=== PATIENT | male | born 1980 | race Caucasian/White ===

== ENCOUNTER 2018-09-30 21:36 | Emergency (ER) | payer SELFPAY ==
[2018-09-30] MEDS ORDERED: traMADol 50 MG Tab PO ONE (21:37)
--- NOTE | 2018-09-30 22:02 | EDM.PDOC ---
ED HPI GENERAL MEDICAL PROBLEM - General Chief Complaint: ENT Problem Stated Complaint: TOOTHACHE Time Seen by Provider: 09/30/18 21:36 Source of Information: Reports: Patient History Limitations: Reports: No Limitations - History of Present Illness INITIAL COMMENTS - FREE TEXT/NARRATIVE: 38 y.o.w.m came to the ed due to dental pain with facial swelling for several days. Tylenol does not help and he was told not to take Motrin. No other acute medical issues. BP 154/110 RR 18 Pulse ox 96% on RA Temp 36.9 Pulse 71 Onset Date: 09/28/18 Onset Time: 07:00 Duration: Day(s):, Getting Worse, Intermittent Location: Reports: Face Quality: Reports: Ache, Burning, Dull, Throbbing Severity: Moderate Improves with: Reports: None Worsens with: Reports: Cold Therapy, Eating Context: Reports: Other (poor dentition) Associated Symptoms: Reports: Other (right face swelling) Right Tooth/Teeth Pain Score (Numeric/FACES): 10 - Related Data Allergies Allergy/AdvReac Type Severity Reaction Status Date / Time bees Allergy Hives Uncoded 09/30/18 21:51 Home Meds: Home Meds Amoxicillin/Potassium Clav [Augmentin 875-125 Tablet] 1 each PO BID #20 tablet 09/30/18 [Rx] Lisinopril 40 mg PO DAILY 09/30/18 [History] ED ROS ENT - Review of Systems Review Of Systems: See Below Constitutional: Reports: No Symptoms HEENT: Reports: Dental Pain Respiratory: Reports: No Symptoms Cardiovascular: Reports: No Symptoms Endocrine: Reports: No Symptoms GI/Abdominal: Reports: No Symptoms : Reports: No Symptoms Musculoskeletal: Reports: No Symptoms Skin: Reports: No Symptoms Neurological: Reports: No Symptoms Psychiatric: Reports: No Symptoms Hematologic/Lymphatic: Reports: No Symptoms Immunologic: Reports: No Symptoms ED EXAM, ENT - Physical Exam Exam: See Below Exam Limited By: No Limitations General Appearance: Alert, WD/WN, Mild Distress, Obese Eye Exam: Bilateral Eye: Normal Inspection Ears: Normal External Exam Nose: Normal Inspection, Normal Mucousa Mouth/Throat: Dental Abcess, Dental Pain, Dental Tenderness Head: Atraumatic, Facial Swelling (right cheek) Neck: Normal Inspection, Supple, Non-Tender, Full Range of Motion Respiratory/Chest: No Respiratory Distress, Lungs Clear, Normal Breath Sounds, No Accessory Muscle Use, Chest Non-Tender Cardiovascular: Normal Peripheral Pulses, Regular Rate, Rhythm, No Edema, No Gallop, No Murmur, No Rub GI/Abdominal: Normal Bowel Sounds, Soft, Non-Tender, No Organomegaly, No Abnormal Bruit, No Mass, Pelvis Stable (Male) Exam: Deferred Rectal (Males) Exam: Deferred Back: Normal Inspection, Full Range of Motion Extremities: Normal Inspection, Normal Range of Motion, Non-Tender Neurological: Alert, Oriented, CN II-XII Intact, Normal Cognition, Normal Gait Psychiatric: Normal Affect, Normal Mood Skin: Warm, Dry, Intact, Normal Color Lymphatic: No Adenopathy Course - Vital Signs Text/Narrative:: 38 y.o.w.m came to the ed due to dental pain with facial swelling for several days. Tylenol does not help and he was told not to take Motrin. No other acute medical issues. BP 154/110 RR 18 Pulse ox 96% on RA Temp 36.9 Pulse 71 PE: Morbid obes w m with dental pain and right facial swelling Impression: Toothache with possible abscess Tooth # 3/4 Tx: Augmentin. Ultram to take home Reexam: Improved Plan: D/C with instructions Last Recorded V/S: Last Vital Signs Temp 36.5 C 09/30/18 21:53 Pulse Resp 18 09/30/18 21:53 BP 138/96 H 09/30/18 22:15 Pulse Ox 96 09/30/18 21:53 - Orders/Labs/Meds Meds: Medications Discontinued Medications Generic Name Dose Route Start Last Admin Trade Name Chasity PRN Reason Stop Dose Admin Amoxicillin/Clavulanate Potassium Confirm 09/30/18 22:12 09/30/18 22:18 Augmentin 875 Mg/125 Mg Administered 09/30/18 22:13 1 tab Dose Administration 1 tab .ROUTE .STK-MED ONE Amoxicillin/Clavulanate Potassium 1 tab 09/30/18 22:15 09/30/18 22:48 Augmentin 875 Mg/125 Mg PO 09/30/18 22:16 Not Given ONETIME ONE Departure - Departure Time of Disposition: 21:58 Disposition: Home, Self-Care 01 Condition: Good Clinical Impression: Toothache, Gingivitis, Dental caries, Tooth abscess - Discharge Information Prescriptions: Amoxicillin/Potassium Clav [Augmentin 875-125 Tablet] 1 each PO BID #20 tablet Referrals: PCP,None [Primary Care Provider] - Forms: ED Department Discharge Additional Instructions: Please se a dentis a.s.a.p. Please apply ice to the affected area, please take Ultram for severe pain, Abx as recommended, please come back if your symptoms get worse acutely.
[2018-09-30] MEDS ORDERED: Amoxicillin/Clavulanate K 875-125 MG Tab ONE (22:12)
[2018-09-30] MEDS ORDERED: Amoxicillin/Clavulanate K 875-125 MG Tab PO ONE (22:15)
== END 2018-09-30 22:20 | disposition home or self-care (01) ==
LOC: FB.ED 21:36
DX: K04.7 Periapical abscess without sinus (principal); K05.10 Chronic gingivitis, plaque induced; Z91.030 Bee allergy status; Z79.899 Other long term (current) drug therapy
CPT/HCPCS: 99282; A9270

== ENCOUNTER 2018-10-17 19:49 | Emergency (ER) | payer MEDICAID ==
[2018-10-17] MEDS ORDERED: Clindamycin HCl 150 MG Cap PO ONE (20:51)
[2018-10-17] MEDS ORDERED: Lidocaine 2% Viscous Solution 15 ML Cup PO ONE (20:51)
[2018-10-17] MEDS ORDERED: Gabapentin 100 MG Cap PO ONE ×2 (20:52)
--- NOTE | 2018-10-17 20:58 | EDM.PDOC ---
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 Treatments CHIP TESTER: Reports: Acetaminophen R dental pain Pain Score (Numeric/FACES): 8 - Related Data Allergies Allergy/AdvReac Type Severity Reaction Status Date / Time droperidol Allergy Muscle Verified 10/17/18 20:00 Aches hydrocortisone Allergy Hives Verified 10/17/18 20:00 prochlorperazine Allergy Cannot Verified 10/17/18 20:00 [From Compazine] Remember bees Allergy Hives Uncoded 09/30/18 21:51 Home Meds: Home Meds Amoxicillin/Potassium Clav [Augmentin 875-125 Tablet] 1 each PO BID #20 tablet 09/30/18 [Rx] Lisinopril 40 mg PO DAILY 09/30/18 [History] Acetaminophen [Tylenol Extra Strength] 1,000 mg Q6H PRN 10/17/18 [History] Clindamycin HCl 300 mg PO TID #21 capsule 10/17/18 [Rx] Gabapentin [Neurontin] 100 mg PO Q6H PRN #12 capsule 10/17/18 [Rx] Past Medical History Cardiovascular History: Reports: Hypertension Gastrointestinal History: Reports: GERD Genitourinary History: Reports: Other (See Below) Other Genitourinary History: IG nephrology Musculoskeletal History: Reports: Fracture Other Musculoskeletal History: Hx hx L ankle, L elbow, several fingers bilat hands Psychiatric History: Reports: Anxiety, Depression, Psych Hospitalization(s), Suicide Attempt Endocrine/Metabolic History: Reports: Obesity/BMI 30+ Immunologic History: Reports: Other (See Below) Other Immunologic History: IG nephrology - Infectious Disease History Infectious Disease History: Reports: Chicken Pox - Past Surgical History HEENT Surgical History: Reports: Oral Surgery GI Surgical History: Reports: Appendectomy Male Surgical History: Reports: Other (See Below) Other Male Surgeries/Procedures: kidney biopsy Social & Family History - Family History Family Medical History: Noncontributory - Tobacco Use Smoking Status *Q: Current Every Day Smoker Years of Tobacco use: 8 Packs/Tins Daily: 0.1 - Caffeine Use Caffeine Use: Reports: Energy Drinks, Soda - Recreational Drug Use Recreational Drug Use: Yes Drug Use in Last 12 Months: No Recreational Drug Type: Reports: Marijuana/Hashish ED ROS GENERAL - Review of Systems Review Of Systems: See Below Constitutional: Reports: No Symptoms HEENT: Reports: Dental Pain Respiratory: Reports: No Symptoms Cardiovascular: Reports: No Symptoms Endocrine: Reports: No Symptoms GI/Abdominal: Reports: No Symptoms : Reports: No Symptoms Musculoskeletal: Reports: No Symptoms Skin: Reports: No Symptoms Neurological: Reports: No Symptoms Psychiatric: Reports: No Symptoms Hematologic/Lymphatic: Reports: No Symptoms Immunologic: Reports: No Symptoms ED EXAM, GENERAL - Physical Exam Exam: See Below Exam Limited By: No Limitations General Appearance: Alert, WD/WN Nose: Normal Inspection, Normal Mucosa, No Blood Throat/Mouth: Normal Lips, Normal Oropharynx, Normal Voice, No Airway Compromise , Other (tooth #2 with inc'd tender to percussion, no red or swollen gum, tooth #29 with red and swollen gum and 1-2+ tender palpation) Head: Atraumatic, Normocephalic. No: Facial Swelling Neck: Normal Inspection, Supple, Non-Tender, Full Range of Motion, Other (no cheek swell). No: Lymphadenopathy (R), Lymphadenopathy (L) Respiratory/Chest: No Respiratory Distress Cardiovascular: Regular Rate, Rhythm Course - Vital Signs Last Recorded V/S: Last Vital Signs Temp 36.5 C 10/17/18 19:55 Pulse 73 10/17/18 19:55 Resp 18 10/17/18 19:55 BP 143/86 H 10/17/18 19:55 Pulse Ox 98 10/17/18 19:55 - Orders/Labs/Meds Orders: Active Orders 24 hr Category Date Time Status Gabapentin [Neurontin] Med 10/17/18 20:52 Once 100 mg PO ONETIME ONE Meds: Medications Discontinued Medications Generic Name Dose Route Start Last Admin Trade Name Freq PRN Reason Stop Dose Admin Clindamycin HCl 300 mg 10/17/18 20:51 Cleocin PO 10/17/18 20:52 ONETIME ONE Gabapentin 100 mg 10/17/18 20:52 Neurontin PO 10/17/18 20:53 ONETIME ONE Lidocaine HCl 15 ml 10/17/18 20:51 Xylocaine 2% Viscous PO 10/17/18 20:52 ONETIME ONE Departure - Departure Time of Disposition: 20:53 Disposition: Home, Self-Care 01 Condition: Good Clinical Impression: Dental abscess, Gingivitis - Discharge Information *PRESCRIPTION DRUG MONITORING PROGRAM REVIEWED*: Yes *COPY OF PRESCRIPTION DRUG MONITORING REPORT IN PATIENT FELICE: Yes Prescriptions: Clindamycin HCl 300 mg PO TID #21 capsule Gabapentin [Neurontin] 100 mg PO Q6H PRN #12 capsule PRN Reason: Pain Instructions: Dental Abscess, Gingivitis Referrals: PCP,None [Primary Care Provider] - Additional Instructions: For pain, continue the acetaminophen 500 mg 2 tabs 4 times a day. For pain, put a thin layer of viscous lidocaine on a cotton ball and bite down every hour as needed. For pain, take gabapentin 100 mg 1 capsule every 6 hours as needed. For infection, take clindamycin 300 mg 1 capsule 3 times a day for 1 week. Stop taking the Augmentin. Use ice on the mandible for 10 minutes every 2 hours while awake. Drink cold liquids. Chew on the opposite side of the mouth. Call you dentist tomorrow. - My Orders Last 24 Hours: My Active Orders 10/17/18 20:52 Gabapentin [Neurontin] 100 mg PO ONETIME ONE - Assessment/Plan Last 24 Hours: My Active Orders 10/17/18 20:52 Gabapentin [Neurontin] 100 mg PO ONETIME ONE
== END 2018-10-17 21:13 | disposition home or self-care (01) ==
LOC: FB.ED 19:49
DX: K04.7 Periapical abscess without sinus (principal); K05.10 Chronic gingivitis, plaque induced; I10 Essential (primary) hypertension; F17.210 Nicotine dependence, cigarettes, uncomplicated; Z90.49 Acquired absence of other specified parts of digestive tract; Z88.8 Allergy status to other drugs, medicaments and biological substances; Z91.030 Bee allergy status
CPT/HCPCS: 99282; A9270 ×4

== ENCOUNTER 2019-05-09 22:01 | Emergency (ER) | payer SELFPAY ==
[2019-05-09] MEDS ORDERED: Acetaminophen/Codeine 300-30 MG Tab PO STA (22:17)
[2019-05-09] MEDS ORDERED: Acetaminophen/Codeine 300-30 MG Tab ONE (22:25)
--- NOTE | 2019-05-09 23:47 | EDM.PDOC ---
ED HPI GENERAL MEDICAL PROBLEM - General Stated Complaint: BACK PAIN Time Seen by Provider: 05/09/19 22:01 Source of Information: Reports: Patient History Limitations: Reports: Physical Impairment - History of Present Illness INITIAL COMMENTS - FREE TEXT/NARRATIVE: 39 y.o.w.m with chronic low back pain and a chronic kidney disease, came directly from work due to low back pain, which started while standing for while at work. Pain radiating down to his right knee. No Stool or urine incontinence. Pt is able to abulate with pain at his lower back. No SOB, no N/V no other acute med issues. BP 133/73 Temp 98.3 Pulse 74 Pulse ox 99% on RA RR 18 Onset Date: 05/09/19 Onset Time: 21:00 Duration: Hour(s): Location: Reports: Back - Related Data Allergies Allergy/AdvReac Type Severity Reaction Status Date / Time droperidol Allergy Muscle Verified 10/17/18 20:00 Aches hydrocortisone Allergy Hives Verified 10/17/18 20:00 prochlorperazine Allergy Cannot Verified 10/17/18 20:00 [From Compazine] Remember bees Allergy Hives Uncoded 09/30/18 21:51 Home Meds: Home Meds Amoxicillin/Potassium Clav [Augmentin 875-125 Tablet] 1 each PO BID #20 tablet 09/30/18 [Rx] Lisinopril 40 mg PO DAILY 09/30/18 [History] Acetaminophen [Tylenol Extra Strength] 1,000 mg Q6H PRN 10/17/18 [History] Clindamycin HCl 300 mg PO TID #21 capsule 10/17/18 [Rx] Gabapentin [Neurontin] 100 mg PO Q6H PRN #12 capsule 10/17/18 [Rx] Acetaminophen with Codeine [Tylenol with Codeine #3 Tablet] 1 each PO Q4HR PRN # 4 tablet 05/09/19 [Rx] Past Medical History Cardiovascular History: Reports: Hypertension Gastrointestinal History: Reports: GERD Genitourinary History: Reports: Other (See Below) Other Genitourinary History: IG nephrology Musculoskeletal History: Reports: Fracture Other Musculoskeletal History: Hx hx L ankle, L elbow, several fingers bilat hands Psychiatric History: Reports: Anxiety, Depression, Psych Hospitalization(s), Suicide Attempt Endocrine/Metabolic History: Reports: Obesity/BMI 30+ Immunologic History: Reports: Other (See Below) Other Immunologic History: IG nephrology - Infectious Disease History Infectious Disease History: Reports: Chicken Pox - Past Surgical History HEENT Surgical History: Reports: Oral Surgery GI Surgical History: Reports: Appendectomy Male Surgical History: Reports: Other (See Below) Other Male Surgeries/Procedures: kidney biopsy Social & Family History - Family History Family Medical History: Noncontributory - Caffeine Use Caffeine Use: Reports: Energy Drinks, Soda ED ROS GENERAL - Review of Systems Review Of Systems: See Below Constitutional: Reports: No Symptoms HEENT: Reports: No Symptoms Respiratory: Reports: No Symptoms Cardiovascular: Reports: No Symptoms Endocrine: Reports: No Symptoms GI/Abdominal: Reports: No Symptoms : Reports: No Symptoms Musculoskeletal: Reports: Back Pain Skin: Reports: No Symptoms Neurological: Reports: No Symptoms Psychiatric: Reports: No Symptoms Hematologic/Lymphatic: Reports: No Symptoms Immunologic: Reports: No Symptoms ED EXAM,LOWER BACK PAIN/INJURY - Physical Exam Exam: See Below Exam Limited By: Physical Impairment General Appearance: Alert, WD/WN, Obese Eye Exam: Bilateral Eye: Normal Inspection Ears: Normal External Exam, Normal Canal Nose: Normal Inspection, Normal Mucosa, No Blood Throat/Mouth: Normal Inspection, Normal Lips, Normal Teeth, Normal Gums, Normal Voice, No Airway Compromise Head: Atraumatic, Normocephalic Neck: Normal Inspection, Supple, Non-Tender, Full Range of Motion Respiratory/Chest: No Respiratory Distress, Lungs Clear, Normal Breath Sounds, No Accessory Muscle Use, Chest Non-Tender Cardiovascular: Normal Peripheral Pulses, Regular Rate, Rhythm, No Edema, No Gallop, No Murmur, No Rub GI/Abdominal: Normal Bowel Sounds, Soft, Non-Tender, No Organomegaly (Male) Exam: Deferred Rectal (Males) Exam: Deferred Back Exam: Normal Inspection, Decreased Range of Motion, Muscle Spasm, Paraspinal Tenderness Extremities: Normal Inspection, Normal Range of Motion, Non-Tender Neurological: Alert, Normal Mood/Affect, CN II-XII Intact, Oriented x 3 Psychiatric: Normal Affect, Normal Mood Skin Exam: Warm, Dry, Intact, Normal Color, No Rash Lymphatic: No Adenopathy Course - Vital Signs Text/Narrative:: 39 y.o.w.m with chronic low back pain and a chronic kidney disease, came directly from work due to low back pain, which started while standing for while at work. Pain radiating down to his right knee. No Stool or urine incontinence. Pt is able to abulate with pain at his lower back. No SOB, no N/V no other acute med issues. BP 133/73 Temp 98.3 Pulse 74 Pulse ox 99% on RA RR 18 PE: Obese 39 y.o.w.m with low back pain Imaging/Labs: Not indicted Impression: Chronic back pain with Disc disease H/O kidney disease Tx: Tylenol with codeine was given, which is the only med he is allowed to take for pain. Reexam: Pt was 100% free of pain Plan: D/C with instructions - Orders/Labs/Meds Orders: Active Orders 24 hr Category Date Time Status Cooling Warming Measures [RC] ASDIRECTED Care 05/09/19 22:18 Active Ice Bag [Ice Therapy] [OM.PC] Routine Oth 05/09/19 22:18 Ordered Meds: Medications Discontinued Medications Generic Name Dose Route Start Last Admin Trade Name Freq PRN Reason Stop Dose Admin Acetaminophen/Codeine Phosphate 2 tab 05/09/19 22:17 05/09/19 22:24 Tylenol With Codeine No.3 300mg/30mg PO 05/09/19 22:18 2 tab ONETIME STA Administration Acetaminophen/Codeine Phosphate Confirm 05/09/19 22:25 Tylenol With Codeine No.3 300mg/30mg Administered 05/09/19 22:26 Dose 1 tab .ROUTE .STK-MED ONE Departure - Departure Time of Disposition: 23:48 Disposition: Home, Self-Care 01 Condition: Good Clinical Impression: Back pain at L4-L5 level - Discharge Information Prescriptions: Acetaminophen with Codeine [Tylenol with Codeine #3 Tablet] 1 each PO Q4HR PRN # 4 tablet PRN Reason: severe pain Referrals: PCP,None [Primary Care Provider] - Forms: ED Department Discharge Additional Instructions: Please apply ice to tower back, take the pain mes as recommended, please f/u, come back if your symptoms get worse acutely - My Orders Last 24 Hours: My Active Orders 05/09/19 22:18 Cooling Warming Measures [RC] ASDIRECTED Ice Bag [Ice Therapy] [OM.PC] Routine - Assessment/Plan Last 24 Hours: My Active Orders 05/09/19 22:18 Cooling Warming Measures [RC] ASDIRECTED Ice Bag [Ice Therapy] [OM.PC] Routine
== END 2019-05-10 | disposition home or self-care (01) ==
LOC: FB.ED 22:01
DX: M54.5 Low back pain (principal); I10 Essential (primary) hypertension; E66.9 Obesity, unspecified; Z68.41 Body mass index [BMI] 40.0-44.9, adult; Z90.49 Acquired absence of other specified parts of digestive tract; Z88.8 Allergy status to other drugs, medicaments and biological substances; Z91.030 Bee allergy status; Z79.899 Other long term (current) drug therapy
CPT/HCPCS: 99283; A9270

== ENCOUNTER 2019-06-15 01:28 | Emergency (ER) | payer SELFPAY ==
[2019-06-15] MEDS ORDERED: Cephalexin 500 MG Cap PO ONE (01:29)
--- NOTE | 2019-06-15 01:49 | EDM.PDOC ---
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 - Related Data Allergies Allergy/AdvReac Type Severity Reaction Status Date / Time droperidol Allergy Muscle Verified 06/15/19 01:46 Aches hydrocortisone Allergy Hives Verified 06/15/19 01:46 prochlorperazine Allergy Cannot Verified 06/15/19 01:46 [From Compazine] Remember bees Allergy Anaphylaxis Uncoded 06/15/19 02:50 Home Meds: Home Meds Hydrochlorothiazide/Lisinopril [Lisinopril-HCTZ 20-12.5 MG] 1 tab PO DAILY 05/10 [History] Simvastatin 10 mg PO DAILY 06/15/19 [History] Past Medical History Cardiovascular History: Reports: Hypertension Gastrointestinal History: Reports: GERD Genitourinary History: Reports: Other (See Below) Other Genitourinary History: IG nephrology Musculoskeletal History: Reports: Fracture Other Musculoskeletal History: Hx hx L ankle, L elbow, several fingers bilat hands Psychiatric History: Reports: Anxiety, Depression, Psych Hospitalization(s), Suicide Attempt Endocrine/Metabolic History: Reports: Obesity/BMI 30+ Immunologic History: Reports: Other (See Below) Other Immunologic History: IG nephrology - Infectious Disease History Infectious Disease History: Reports: Chicken Pox - Past Surgical History HEENT Surgical History: Reports: Oral Surgery GI Surgical History: Reports: Appendectomy Male Surgical History: Reports: Other (See Below) Other Male Surgeries/Procedures: kidney biopsy Social & Family History - Family History Family Medical History: Noncontributory - Caffeine Use Caffeine Use: Reports: Energy Drinks, Soda ED ROS GENERAL - Review of Systems Review Of Systems: ROS reveals no pertinent complaints other than HPI. ED EXAM, SKIN/RASH Exam: See Below Text/Narrative:: Rt forearm was red,swollen anteriorly around the tattoo. No drainage. It is warm Exam Limited By: No Limitations General Appearance: Alert, WD/WN Psychiatric: Normal Affect Skin: Warm, Increased Warmth Lymphatic: No Adenopathy Course - Vital Signs Last Recorded V/S: Last Vital Signs Temp 97.9 F 06/15/19 01:40 Pulse 81 06/15/19 01:40 Resp 18 06/15/19 01:40 BP 134/94 H 06/15/19 01:40 Pulse Ox 100 06/15/19 01:40 Departure - Departure Time of Disposition: 02:00 Disposition: Home, Self-Care 01 Clinical Impression: Cellulitis - Discharge Information Instructions: Wound Infection, Cephalexin tablets or capsules Referrals: PCP,Unknown [Ordering Only Provider] - 06/17/19 Forms: ED Department Discharge Care Plan Goals: Take Keflex, one tablet 3 times a day until gone. Return to clinic as needed. - Problem List & Annotations (1) Cellulitis SNOMED Code(s): 449775292 Code(s): L03.90 - CELLULITIS, UNSPECIFIED Status: Acute Qualifiers: Site of cellulitis: extremity (2) Tattoo reaction SNOMED Code(s): 48231202 Code(s): L92.3 - FOREIGN BODY GRANULOMA OF THE SKIN AND SUBCUTANEOUS TISSUE Status: Acute - Problem List Review Problem List Initiated/Reviewed/Updated: Yes - Assessment/Plan Plan: APart from local wound care,I prescribed Cephalexin 500 mg poio tid for 7 days. , Follow up with PCP in 3-5 days ,and return to ED with worsening symptoms.
== END 2019-06-15 02:00 | disposition home or self-care (01) ==
LOC: FB.ED 01:28
DX: L03.113 Cellulitis of right upper limb (principal); I10 Essential (primary) hypertension; E66.9 Obesity, unspecified; Z88.8 Allergy status to other drugs, medicaments and biological substances; Z91.030 Bee allergy status; Z79.899 Other long term (current) drug therapy; Z68.41 Body mass index [BMI] 40.0-44.9, adult
CPT/HCPCS: 99282; 99283; A9270-GY

== ENCOUNTER 2019-10-08 19:33 | Emergency (ER) | payer SELFPAY ==
[2019-10-08] MEDS ORDERED: Albuterol 8 GM Inhaler INH ONE (19:34)
[2019-10-08] MEDS ORDERED: Sodium Chloride 0.9% 10 ML Syringe FLUSH PRN (20:03)
[2019-10-08] MEDS ORDERED: LORazepam 2 MG/ML SDV IVPUSH ONE (20:04)
[2019-10-08] MEDS ORDERED: Aspirin 81 MG Tab.Chew PO ONE (20:12)
--- NOTE | 2019-10-08 20:13 | EDM.PDOC ---
ED HPI GENERAL MEDICAL PROBLEM - General Chief Complaint: Chest Pain Stated Complaint: SOB Time Seen by Provider: 10/08/19 20:04 Source of Information: Reports: Patient History Limitations: Reports: No Limitations - History of Present Illness INITIAL COMMENTS - FREE TEXT/NARRATIVE: Presents with substernal non-radiating chest pain, described as an ache, associated with SOB, and tingling to his feet x 1 hour. Denies prior h/o CAD, DVT/PE, or chronic lung disease. He is a non-smoker. Patient has had a work up for these symptoms in the past, etiology unclear. He does admit to having anxiety and panic attacks. Also admits to having a lot of stress in his life at the moment. His girlfriend is currently , he is concerned that he is overweight, doesn't exercise, and has poor eating habits. He endorses cough x 2 days, but no fever. Father of an NH @62 yo. Onset: Today Duration: Hour(s): (1) Location: Reports: Chest Quality: Reports: Ache Severity: Moderate Improves with: Reports: None Worsens with: Reports: None Associated Symptoms: Reports: Shortness of Breath Midsternal chest Pain Score (Numeric/FACES): 2 - Related Data Allergies Allergy/AdvReac Type Severity Reaction Status Date / Time droperidol Allergy Muscle Verified 10/08/19 19:46 Aches hydrocortisone Allergy Hives Verified 10/08/19 19:46 prochlorperazine Allergy Cannot Verified 10/08/19 19:46 [From Compazine] Remember bees Allergy Anaphylaxis Uncoded 10/08/19 19:46 Home Meds: Home Meds Hydrochlorothiazide/Lisinopril [Lisinopril-HCTZ 20-12.5 MG] 1 tab PO DAILY 05/10 [History] Simvastatin 10 mg PO DAILY 06/15/19 [History] Past Medical History Cardiovascular History: Reports: High Cholesterol, Hypertension. Denies: CAD, [place] Gastrointestinal History: Reports: GERD Genitourinary History: Reports: Other (See Below) Other Genitourinary History: IG nephropathy Musculoskeletal History: Reports: Fracture Other Musculoskeletal History: Hx hx L ankle, L elbow, several fingers bilat hands Neurological History: Reports: Concussion, Migraines Psychiatric History: Reports: Anxiety, Depression, Psych Hospitalization(s), Suicide Attempt Endocrine/Metabolic History: Reports: Obesity/BMI 30+ Immunologic History: Reports: Other (See Below) Other Immunologic History: IG nephropathy - Infectious Disease History Infectious Disease History: Reports: Chicken Pox - Past Surgical History HEENT Surgical History: Reports: Oral Surgery Cardiovascular Surgical History: Reports: None GI Surgical History: Reports: Appendectomy Male Surgical History: Reports: Other (See Below) Other Male Surgeries/Procedures: kidney biopsy Musculoskeletal Surgical History: Reports: None Social & Family History - Family History Family Medical History: Noncontributory - Tobacco Use Smoking Status *Q: Former Smoker Years of Tobacco use: 5 Used Tobacco, but Quit: Yes Month/Year Tobacco Last Used: 2004 - Caffeine Use Caffeine Use: Reports: Energy Drinks, Soda - Recreational Drug Use Recreational Drug Use: Yes Drug Use in Last 12 Months: No Recreational Drug Type: Reports: Methamphetamine Recreational Drug Use Frequency: Not Used In Over 6 Months ED ROS GENERAL - Review of Systems Review Of Systems: Comprehensive ROS is negative, except as noted in HPI. ED EXAM, GENERAL - Physical Exam Exam: See Below Exam Limited By: No Limitations General Appearance: Alert, WD/WN, No Apparent Distress Ears: Normal External Exam Nose: Normal Inspection Throat/Mouth: No Airway Compromise Head: Atraumatic, Normocephalic Neck: Full Range of Motion Respiratory/Chest: No Respiratory Distress, Lungs Clear, Decreased Breath Sounds (mild). No: Crackles, Rales, Rhonchi, Wheezing, Stridor, Prolonged Expiration Cardiovascular: Regular Rate, Rhythm, No Murmur GI/Abdominal: No Distention Back Exam: Full Range of Motion Extremities: Normal Range of Motion, Non-Tender, No Pedal Edema Neurological: Alert, Oriented, Normal Cognition, No Motor/Sensory Deficits Psychiatric: Tearful Skin Exam: Warm, Dry, Intact EKG INTERPRETATION EKG Date: 10/08/19 Time: 19:40 Rhythm: NSR Rate (Beats/Min): 81 [place]: Normal P-Wave: Present QRS: Normal ST-T: Normal QT: Normal Course - Vital Signs Last Recorded V/S: Last Vital Signs Temp 36.6 C 10/08/19 19:33 Pulse 68 10/08/19 23:00 Resp 18 10/08/19 23:00 BP 105/70 10/08/19 23:00 Pulse Ox 96 10/08/19 23:00 - Orders/Labs/Meds Orders: Active Orders 24 hr Category Date Time Status EKG Documentation Completion [RC] ASDIRECTED Care 10/08/19 20:03 Active RT Aerosol Therapy [RC] ASDIRECTED Care 10/08/19 21:05 Active Chest 2V [CR] Stat Exams 10/08/19 19:55 Taken Sodium Chloride 0.9% [Saline Flush] Med 10/08/19 20:03 Active 10 ml FLUSH ASDIRECTED PRN Saline Lock Insert [OM.PC] Routine Oth 10/08/19 20:03 Ordered EKG 12 Lead [EK] Routine Ther 10/08/19 20:03 Ordered Medication Orders Sodium Chloride (Saline Flush) 10 ml FLUSH ASDIRECTED PRN PRN Reason: Keep Vein Open Last Admin: 10/08/19 20:12 Dose: 10 ml Labs: Laboratory Tests 10/08/19 10/08/19 10/08/19 Range/Units 19:45 19:45 19:45 WBC 8.3 (4.5-12.0) X10-3/uL RBC 5.35 (4.30-5.75) x10(6)uL Hgb 15.7 (13.5-17.8) g/dL Hct 46.9 (30.0-51.3) % MCV 87.7 (80-96) fL MCH 29.3 (27.7-33.6) pg MCHC 33.4 (32.2-35.4) g/dL RDW 13.2 (11.5-15.5) % Plt Count 263 (125-369) X10(3)uL MPV 7.8 (7.4-10.4) fL Neut % (Auto) 66.5 (46-82) % Lymph % (Auto) 27.6 (13-37) % [place] % (Auto) 3.9 L (4-12) % Eos % (Auto) 1 (1.0-5.0) % Baso % (Auto) 1 (0-2) % Neut # (Auto) 5.6 (1.6-8.3) # Lymph # (Auto) 2.3 (0.6-5.0) # [place] # (Auto) 0.3 (0.0-1.3) # Eos # (Auto) 0.1 (0.0-0.8) # Baso # (Auto) 0.0 (0.0-0.2) # PT 9.6 (9.0-11.1) sec INR 0.99 L (1.00-1.24) APTT 24.7 (24.4-33.2) SECONDS D-Dimer, Quantitative 0.31 (0.0-0.59) mg/LFEU Sodium 141 (135-145) mmol/L Potassium 4.0 (3.5-5.3) mmol/L Chloride 103 (100-110) mmol/L Carbon Dioxide 21 (21-32) mmol/L BUN 34 H (7-18) mg/dL Creatinine 1.9 H (0.70-1.30) mg/dL Est Cr Clr Drug Dosing 49.77 mL/min Estimated GFR (MDRD) 40 L (>60) BUN/Creatinine Ratio 17.9 (9-20) Glucose 104 (80-116) mg/dL Calcium 9.4 (8.6-10.2) mg/dL Total Bilirubin 0.3 (0.1-1.3) mg/dL AST 26 H D (5-25) IU/L ALT 44 H D (12-36) U/L Alkaline Phosphatase 104 (56-112) IU/L Troponin I (4.0-60.3) pg/mL Total Protein 7.7 (6.0-8.0) g/dL Albumin 3.6 (3.5-5.2) g/dL Globulin 4.1 g/dL Albumin/Globulin Ratio 0.9 10/08/19 10/08/19 Range/Units 19:45 22:45 WBC (4.5-12.0) X10-3/uL RBC (4.30-5.75) x10(6)uL Hgb (13.5-17.8) g/dL Hct (30.0-51.3) % MCV (80-96) fL MCH (27.7-33.6) pg MCHC (32.2-35.4) g/dL RDW (11.5-15.5) % Plt Count (125-369) X10(3)uL MPV (7.4-10.4) fL Neut % (Auto) (46-82) % Lymph % (Auto) (13-37) % [place] % (Auto) (4-12) % Eos % (Auto) (1.0-5.0) % Baso % (Auto) (0-2) % Neut # (Auto) (1.6-8.3) # Lymph # (Auto) (0.6-5.0) # [place] # (Auto) (0.0-1.3) # Eos # (Auto) (0.0-0.8) # Baso # (Auto) (0.0-0.2) # PT (9.0-11.1) sec INR (1.00-1.24) APTT (24.4-33.2) SECONDS D-Dimer, Quantitative (0.0-0.59) mg/LFEU Sodium (135-145) mmol/L Potassium (3.5-5.3) mmol/L Chloride (100-110) mmol/L Carbon Dioxide (21-32) mmol/L BUN (7-18) mg/dL Creatinine (0.70-1.30) mg/dL Est Cr Clr Drug Dosing mL/min Estimated GFR (MDRD) (>60) BUN/Creatinine Ratio (9-20) Glucose (80-116) mg/dL Calcium (8.6-10.2) mg/dL Total Bilirubin (0.1-1.3) mg/dL AST (5-25) IU/L ALT (12-36) U/L Alkaline Phosphatase (56-112) IU/L Troponin I 4.3 4.6 (4.0-60.3) pg/mL Total Protein (6.0-8.0) g/dL Albumin (3.5-5.2) g/dL Globulin g/dL Albumin/Globulin Ratio Meds: Medications Generic Name Dose Route Start Last Admin Trade Name Freq PRN Reason Stop Dose Admin Sodium Chloride 10 ml 10/08/19 20:03 10/08/19 20:12 Saline Flush FLUSH 10 ml ASDIRECTED PRN Administration Keep Vein Open Discontinued Medications Generic Name Dose Route Start Last Admin Trade Name Freq PRN Reason Stop Dose Admin Albuterol/Ipratropium 3 ml 10/08/19 21:05 10/08/19 21:09 Duoneb 3.0-0.5 Mg/3 Ml NEB 10/08/19 21:06 3 ml ONETIME ONE Administration Aspirin 324 mg 10/08/19 20:12 10/08/19 20:15 Aspirin PO 10/08/19 20:13 324 mg ONETIME ONE Administration Lorazepam 1 mg 10/08/19 20:04 10/08/19 20:29 Ativan IVPUSH 10/08/19 20:05 1 mg ONETIME ONE Administration - Radiology Interpretation Free Text/Narrative:: CXR: Negative chest. (CRL, Dr. Roberts) - Re-Assessments/Exams Free Text/Narrative Re-Assessment/Exam: 10/08/19 23:13 Although the patient felt less anxious, he experienced only minimal improvement of chest pain and shortness of breath after Ativan 1mg IV. Chest pain and shortness of breath resolved after Duoneb. Patient discharged with Albuterol MDI. Departure - Departure Time of Disposition: 23:14 Disposition: Home, Self-Care 01 Condition: Good Clinical Impression: Atypical chest pain URI (upper respiratory infection) Qualifiers: URI type: unspecified viral URI Qualified Code(s): J06.9 - Acute upper respiratory infection, unspecified Instructions: Nonspecific Chest Pain, [id number], Viral Respiratory Infection , [id number] Referrals: PCP,None [Primary Care Provider] - Forms: ED Department Discharge Additional Instructions: Establish with a primary physician in 2-3 days. Use the Albuterol inhaler as directed. Take OTC Mucinex as needed. Return to the ER if symptoms worsen. Sepsis Event Note - Evaluation Sepsis Screening Result: No Definite Risk - Focused Exam Vital Signs: Vital Signs Temp Pulse Resp BP Pulse Ox 10/08/19 23:00 68 18 105/70 96 10/08/19 22:30 69 19 110/66 97 10/08/19 21:30 73 18 112/82 95 10/08/19 21:00 73 14 117/67 97 10/08/19 20:30 74 17 111/71 96 10/08/19 20:15 72 14 113/60 97 10/08/19 20:00 75 16 114/75 98 10/08/19 19:45 78 18 117/69 99 10/08/19 19:33 36.6 C 80 20 128/72 95 Date Exam was Performed: 10/08/19 Time Exam was Performed: 23:10 - My Orders Last 24 Hours: My Active Orders 10/08/19 19:55 Chest 2V [CR] Stat 10/08/19 20:03 EKG Documentation Completion [RC] ASDIRECTED Sodium Chloride 0.9% [Saline Flush] 10 ml FLUSH ASDIRECTED PRN Saline Lock Insert [OM.PC] Routine EKG 12 Lead [EK] Routine 10/08/19 21:05 RT Aerosol Therapy [RC] ASDIRECTED - Assessment/Plan Last 24 Hours: My Active Orders 10/08/19 19:55 Chest 2V [CR] Stat 10/08/19 20:03 EKG Documentation Completion [RC] ASDIRECTED Sodium Chloride 0.9% [Saline Flush] 10 ml FLUSH ASDIRECTED PRN Saline Lock Insert [OM.PC] Routine EKG 12 Lead [EK] Routine 10/08/19 21:05 RT Aerosol Therapy [RC] ASDIRECTED
[2019-10-08] MEDS ORDERED: Albuterol/Ipratropium 3.0-0.5 MG/3 ML Neb Soln NEB ONE (21:05)
== END 2019-10-08 23:30 | disposition home or self-care (01) ==
LOC: FB.ED 19:33
DX: R07.89 Other chest pain (principal); J06.9 Acute upper respiratory infection, unspecified; I10 Essential (primary) hypertension; E78.00 Pure hypercholesterolemia, unspecified; Z88.8 Allergy status to other drugs, medicaments and biological substances; Z88.6 Allergy status to analgesic agent; Z91.030 Bee allergy status; Z79.899 Other long term (current) drug therapy; Z87.891 Personal history of nicotine dependence
CPT/HCPCS: 36415; 71046; 80053; 84484; 85025; 85379; 85610; 85730; 93005; 93010; 94640; 96374; 99284; 99285; A9270; J2060; J7620-GY

== ENCOUNTER 2019-10-16 17:43 | Emergency (ER) | payer OTHER ==
--- NOTE | 2019-10-16 18:32 | EDM.PDOC ---
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, continuing working until 11 PM went to urgent care 2d ago and imaging without fx per Dr Magdaleno however pain has continued to be severe, not able to weight bear, using crutches , cannot take NSAIDs as he has IgA nephropathy since age 15 (on steroids x 1y when 1st dx'ed when living in [facility]) lives with girlfriend and her children he had a bad sprain of his L foot when skateboarding in his 20s - Related Data Allergies Allergy/AdvReac Type Severity Reaction Status Date / Time droperidol Allergy Muscle Verified 10/08/19 19:46 Aches hydrocortisone Allergy Hives Verified 10/08/19 19:46 prochlorperazine Allergy Cannot Verified 10/08/19 19:46 [From Compazine] Remember bees Allergy Anaphylaxis Uncoded 10/08/19 19:46 Home Meds: Home Meds Hydrochlorothiazide/Lisinopril [Lisinopril-HCTZ 20-12.5 MG] 1 tab PO DAILY 05/10 [History] Simvastatin 10 mg PO DAILY 06/15/19 [History] Past Medical History Cardiovascular History: Reports: High Cholesterol, Hypertension. Denies: CAD, [place] Gastrointestinal History: Reports: GERD Genitourinary History: Reports: Other (See Below) Other Genitourinary History: IG nephropathy Musculoskeletal History: Reports: Fracture Other Musculoskeletal History: Hx hx L ankle, L elbow, several fingers bilat hands Neurological History: Reports: Concussion, Migraines Psychiatric History: Reports: Anxiety, Depression, Psych Hospitalization(s), Suicide Attempt Endocrine/Metabolic History: Reports: Obesity/BMI 30+ Immunologic History: Reports: Other (See Below) Other Immunologic History: IG nephropathy - Infectious Disease History Infectious Disease History: Reports: Chicken Pox - Past Surgical History HEENT Surgical History: Reports: Oral Surgery Cardiovascular Surgical History: Reports: None GI Surgical History: Reports: Appendectomy Male Surgical History: Reports: Other (See Below) Other Male Surgeries/Procedures: kidney biopsy Musculoskeletal Surgical History: Reports: None Social & Family History - Family History Family Medical History: Noncontributory - Caffeine Use Caffeine Use: Reports: Energy Drinks, Soda ED ROS GENERAL - Review of Systems Review Of Systems: See Below Constitutional: Reports: No Symptoms HEENT: Reports: No Symptoms Respiratory: Reports: No Symptoms Cardiovascular: Reports: No Symptoms Endocrine: Reports: No Symptoms GI/Abdominal: Reports: No Symptoms : Reports: No Symptoms Musculoskeletal: Reports: Foot Pain Skin: Reports: No Symptoms Neurological: Reports: No Symptoms Psychiatric: Reports: No Symptoms Hematologic/Lymphatic: Reports: No Symptoms Immunologic: Reports: No Symptoms ED EXAM, GENERAL - Physical Exam Exam: See Below Exam Limited By: No Limitations General Appearance: Alert, WD/WN, No Apparent Distress Respiratory/Chest: No Respiratory Distress Cardiovascular: Regular Rate, Rhythm Extremities: Other (left foot with 1+ edema over the metatatarsals with 1-2+ tender across the entire distal 1/2 of the MTs, toes NT, has mild ecchymosis dorsally across distal MTs as well as medially over 1st IP joint) Course - Re-Assessments/Exams Free Text/Narrative Re-Assessment/Exam: 10/16/19 18:34 PE exam c/w a Grade II distal foot sprain, additional imaging 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 and no clinical evidence of localized bone tenderness on exam today Departure - Departure Time of Disposition: 18:25 Disposition: Home, Self-Care 01 Condition: Good Clinical Impression: Sprain of left foot - Discharge Information *PRESCRIPTION DRUG MONITORING PROGRAM REVIEWED*: Not Applicable *COPY OF PRESCRIPTION DRUG MONITORING REPORT IN PATIENT FELICE: Not Applicable Instructions: Elastic Bandage and RICE, Foot Sprain Forms: ED Return to Work/School Form Additional Instructions: For pain and inflammation and swelling, take acetaminophen 500 mg 2 tabs 4 times a day for 7 days, longer if needed. Use ice for 10 minutes 4 times a day. Elevate your foot higher than your heart for 30-60 minutes a day. Use crutches. No weight bearing until cleared by orthopedic surgeon to do so. See Dr Dalal, orthopedic surgeon, in 2-3 days. No work until cleared by orthopedics to do so.
== END 2019-10-16 18:44 | disposition home or self-care (01) ==
LOC: FB.ED 17:43
DX: S93.602A Unspecified sprain of left foot, initial encounter (principal); E78.00 Pure hypercholesterolemia, unspecified; I10 Essential (primary) hypertension; E66.9 Obesity, unspecified; Z88.8 Allergy status to other drugs, medicaments and biological substances; Z91.030 Bee allergy status; Z79.899 Other long term (current) drug therapy; Z68.42 Body mass index [BMI] 45.0-49.9, adult; W00.0XXA Fall on same level due to ice and snow, initial encounter
CPT/HCPCS: 99283

== ENCOUNTER 2020-02-06 17:01 | Emergency (ER) | payer SELFPAY ==
[2020-02-06] MEDS ORDERED: Sodium Chloride 0.9% 1,000 ML IV ONE (17:50)
[2020-02-06] MEDS ORDERED: Sodium Chloride 0.9% 10 ML Syringe FLUSH PRN (17:50)
[2020-02-06] MEDS ORDERED: HYDROmorphone 2 MG/ML SDV IVPUSH ONE (17:51)
--- NOTE | 2020-02-06 17:56 | EDM.PDOC ---
ED HPI GENERAL MEDICAL PROBLEM - General Chief Complaint: Abdominal Pain Stated Complaint: LEFT GROIN PAIN Time Seen by Provider: 02/06/20 17:52 Source of Information: Reports: Patient History Limitations: Reports: No Limitations - History of Present Illness INITIAL COMMENTS - FREE TEXT/NARRATIVE: Presents with worsening left groin pain radiating to back x 1 week. Denies N/V, hematuria, dysuria, or penile discharge. Also complains of RUQ abdominal pain x several weeks, this area not as painful as left groin. Patient has a history of IgA Nephropathy. Denies prior h/o kidney stones. Duration: Week(s): (1) Location: Reports: Abdomen Quality: Reports: Ache Severity: Moderate Left Groin Pain Score (Numeric/FACES): 8 - Related Data Allergies Allergy/AdvReac Type Severity Reaction Status Date / Time droperidol Allergy Muscle Verified 10/08/19 19:46 Aches hydrocortisone Allergy Hives Verified 10/08/19 19:46 prochlorperazine Allergy Cannot Verified 10/08/19 19:46 [From Compazine] Remember bees Allergy Anaphylaxis Uncoded 10/08/19 19:46 Home Meds: Home Meds Hydrochlorothiazide/Lisinopril [Lisinopril/HCTZ 20-12.5 MG] 1 tab PO DAILY 05/10/19 [History] Simvastatin 10 mg PO DAILY 06/15/19 [History] Acetaminophen/HYDROcodone [[place] 325-5 MG] 1 - 2 tab PO Q6H PRN #20 tab 02/06/20 [Rx] Past Medical History Cardiovascular History: Reports: High Cholesterol, Hypertension. Denies: CAD, NM Gastrointestinal History: Reports: GERD Genitourinary History: Reports: Other (See Below) Other Genitourinary History: IgA nephropathy Musculoskeletal History: Reports: Fracture Other Musculoskeletal History: Hx hx L ankle, L elbow, several fingers bilat hands Neurological History: Reports: Concussion, Migraines Psychiatric History: Reports: Anxiety, Depression, Psych Hospitalization(s), Suicide Attempt Endocrine/Metabolic History: Reports: Obesity/BMI 30+ - Infectious Disease History Infectious Disease History: Reports: Chicken Pox - Past Surgical History HEENT Surgical History: Reports: Oral Surgery Cardiovascular Surgical History: Reports: None GI Surgical History: Reports: Appendectomy Male Surgical History: Reports: Other (See Below) Other Male Surgeries/Procedures: kidney biopsy Musculoskeletal Surgical History: Reports: None Social & Family History - Family History Family Medical History: Noncontributory - Tobacco Use Smoking Status *Q: Former Smoker - Caffeine Use Caffeine Use: Reports: Energy Drinks, Soda - Alcohol Use Alcohol Use History: Yes Alcohol Use Frequency: Socially ED ROS GENERAL - Review of Systems Review Of Systems: Comprehensive ROS is negative, except as noted in HPI. ED EXAM, GENERAL - Physical Exam Exam: See Below Exam Limited By: No Limitations General Appearance: Alert, WD/WN, No Apparent Distress Nose: Normal Inspection Throat/Mouth: No Airway Compromise Head: Atraumatic, Normocephalic Neck: Full Range of Motion Respiratory/Chest: No Respiratory Distress, Lungs Clear, Normal Breath Sounds Cardiovascular: Regular Rate, Rhythm, No Murmur GI/Abdominal: Normal Bowel Sounds, Soft, No Mass, Tender (LLQ and RUQ) (Male) Exam: No Hernia Back Exam: CVA Tenderness (L) Extremities: Normal Range of Motion Neurological: Alert, Oriented, Normal Cognition, No Motor/Sensory Deficits Psychiatric: Normal Affect, Normal Mood Skin Exam: Warm, Dry, Intact Course - Vital Signs Last Recorded V/S: Last Vital Signs Temp 36.8 C 02/06/20 17:13 Pulse 79 02/06/20 17:13 Resp 18 02/06/20 17:13 BP 124/75 02/06/20 17:13 Pulse Ox 99 02/06/20 17:13 - Orders/Labs/Meds Orders: Active Orders 24 hr Category Date Time Status Abdomen Pelvis wo Cont [CT] Stat Exams 02/06/20 18:13 Taken Sodium Chloride 0.9% [Saline Flush] Med 02/06/20 17:50 Active 10 ml FLUSH ASDIRECTED PRN Saline Lock Insert [OM.PC] Routine Oth 02/06/20 17:50 Ordered Medication Orders Sodium Chloride (Saline Flush) 10 ml FLUSH ASDIRECTED PRN PRN Reason: Keep Vein Open Labs: Laboratory Tests 02/06/20 02/06/20 02/06/20 Range/Units 17:45 18:01 18:01 WBC 9.3 (4.5-12.0) X10-3/uL RBC 5.46 (4.30-5.75) x10(6)uL Hgb 15.8 (13.5-17.8) g/dL Hct 48.3 (30.0-51.3) % MCV 88.3 (80-96) fL MCH 28.9 (27.7-33.6) pg MCHC 32.7 (32.2-35.4) g/dL RDW 13.3 (11.5-15.5) % Plt Count 341 (125-369) X10(3)uL MPV 7.2 L (7.4-10.4) fL Neut % (Auto) 67.7 (46-82) % Lymph % (Auto) 25.7 (13-37) % [place] % (Auto) 4.3 (4-12) % Eos % (Auto) 2 (1.0-5.0) % Baso % (Auto) 1 (0-2) % Neut # (Auto) 6.2 (1.6-8.3) # Lymph # (Auto) 2.4 (0.6-5.0) # [place] # (Auto) 0.4 (0.0-1.3) # Eos # (Auto) 0.2 (0.0-0.8) # Baso # (Auto) 0.1 (0.0-0.2) # Sodium 137 (135-145) mmol/L Potassium 5.3 D (3.5-5.3) mmol/L Chloride 102 (100-110) mmol/L Carbon Dioxide 26 (21-32) mmol/L BUN 45 H D (7-18) mg/dL Creatinine 2.2 H* (0.70-1.30) mg/dL Est Cr Clr Drug Dosing 42.56 mL/min Estimated GFR (MDRD) 34 L (>60) BUN/Creatinine Ratio 20.5 H (9-20) Glucose 91 (80-116) mg/dL Calcium 9.2 (8.6-10.2) mg/dL Total Bilirubin 0.4 (0.1-1.3) mg/dL AST 28 H (5-25) IU/L ALT 51 H D (12-36) U/L Alkaline Phosphatase 124 H (56-112) IU/L Total Protein 8.1 H (6.0-8.0) g/dL Albumin 3.8 (3.5-5.2) g/dL Globulin 4.3 g/dL Albumin/Globulin Ratio 0.9 Lipase (73-393) U/L Urine Color Yellow (YELLOW) Urine Appearance Clear (CLEAR) Urine pH 5.0 (5.0-6.5) Ur Specific [place] 1.015 (1.010-1.025) Urine Protein Negative (NEGATIVE) mg/dL Urine Glucose (UA) Normal (NORMAL) mg/dL Urine Ketones Negative (NEGATIVE) mg/dL Urine Occult Blood Negative (NEGATIVE) Urine Nitrite Negative (NEGATIVE) Urine Bilirubin Negative (NEGATIVE) Urine Urobilinogen Normal (NEGATIVE) mg/dL Ur Leukocyte Esterase Negative (NEGATIVE) Urine RBC 0-5 (0-5) Urine WBC 0-5 (0-5) Ur Squamous Epith Cells Rare (NS,R,O) Urine Bacteria Few H (NS) Urine Mucus Few H (NS) 02/06/20 Range/Units 18:01 WBC (4.5-12.0) X10-3/uL RBC (4.30-5.75) x10(6)uL Hgb (13.5-17.8) g/dL Hct (30.0-51.3) % MCV (80-96) fL MCH (27.7-33.6) pg MCHC (32.2-35.4) g/dL RDW (11.5-15.5) % Plt Count (125-369) X10(3)uL MPV (7.4-10.4) fL Neut % (Auto) (46-82) % Lymph % (Auto) (13-37) % [place] % (Auto) (4-12) % Eos % (Auto) (1.0-5.0) % Baso % (Auto) (0-2) % Neut # (Auto) (1.6-8.3) # Lymph # (Auto) (0.6-5.0) # [place] # (Auto) (0.0-1.3) # Eos # (Auto) (0.0-0.8) # Baso # (Auto) (0.0-0.2) # Sodium (135-145) mmol/L Potassium (3.5-5.3) mmol/L Chloride (100-110) mmol/L Carbon Dioxide (21-32) mmol/L BUN (7-18) mg/dL Creatinine (0.70-1.30) mg/dL Est Cr Clr Drug Dosing mL/min Estimated GFR (MDRD) (>60) BUN/Creatinine Ratio (9-20) Glucose (80-116) mg/dL Calcium (8.6-10.2) mg/dL Total Bilirubin (0.1-1.3) mg/dL AST (5-25) IU/L ALT (12-36) U/L Alkaline Phosphatase (56-112) IU/L Total Protein (6.0-8.0) g/dL Albumin (3.5-5.2) g/dL Globulin g/dL Albumin/Globulin Ratio Lipase 150 (73-393) U/L Urine Color (YELLOW) Urine Appearance (CLEAR) Urine pH (5.0-6.5) Ur Specific [place] (1.010-1.025) Urine Protein (NEGATIVE) mg/dL Urine Glucose (UA) (NORMAL) mg/dL Urine Ketones (NEGATIVE) mg/dL Urine Occult Blood (NEGATIVE) Urine Nitrite (NEGATIVE) Urine Bilirubin (NEGATIVE) Urine Urobilinogen (NEGATIVE) mg/dL Ur Leukocyte Esterase (NEGATIVE) Urine RBC (0-5) Urine WBC (0-5) Ur Squamous Epith Cells (NS,R,O) Urine Bacteria (NS) Urine Mucus (NS) Meds: Medications Generic Name Dose Route Start Last Admin Trade Name Freq PRN Reason Stop Dose Admin Sodium Chloride 10 ml 02/06/20 17:50 Saline Flush FLUSH ASDIRECTED PRN Keep Vein Open Discontinued Medications Generic Name Dose Route Start Last Admin Trade Name Freq PRN Reason Stop Dose Admin Hydromorphone HCl 0.5 mg 02/06/20 17:51 02/06/20 18:32 Dilaudid IVPUSH 02/06/20 17:52 0.5 mg ONETIME ONE Administration Sodium Chloride 1,000 mls @ 999 mls/hr 02/06/20 17:50 02/06/20 18:34 Normal Saline IV 02/06/20 18:50 999 mls/hr .BOLUS ONE Administration - Radiology Interpretation Free Text/Narrative:: CT Abd/Pelvis w/o contrast: left inguinal hernia containing only fat, otherwise no acute findings. (per Dr. Magdaleno) - Re-Assessments/Exams Free Text/Narrative Re-Assessment/Exam: 02/06/20 19:01 Pain improved after Dilaudid 0.5mg IV. Departure - Departure Time of Disposition: 19:08 Disposition: Home, Self-Care 01 Condition: Good Clinical Impression: Inguinal hernia of left side without obstruction or gangrene - Discharge Information *PRESCRIPTION DRUG MONITORING PROGRAM REVIEWED*: Yes *COPY OF PRESCRIPTION DRUG MONITORING REPORT IN PATIENT FELICE: No Prescriptions: Acetaminophen/HYDROcodone [[place] 325-5 MG] 1 - 2 tab PO Q6H PRN #20 tab PRN Reason: Pain Instructions: Inguinal Hernia, Adult, [id number] Referrals: Brandon Minor MD [Physician] - 3 Days Forms: ED Department Discharge, ED Return to Work/School Form Additional Instructions: Fill the [place] prescription and take as directed. Avoid heavy lifting or bearing down. Follow up with a General Surgeon in 3 days. Return to the ER if symptoms worsen. Sepsis Event Note (ED) - Evaluation Sepsis Screening Result: No Definite Risk - Focused Exam Vital Signs: Vital Signs Temp Pulse Resp BP Pulse Ox 02/06/20 17:13 36.8 C 79 18 124/75 99 - My Orders Last 24 Hours: My Active Orders 02/06/20 17:50 Sodium Chloride 0.9% [Saline Flush] 10 ml FLUSH ASDIRECTED PRN Saline Lock Insert [OM.PC] Routine 02/06/20 18:13 Abdomen Pelvis wo Cont [CT] Stat - Assessment/Plan Last 24 Hours: My Active Orders 02/06/20 17:50 Sodium Chloride 0.9% [Saline Flush] 10 ml FLUSH ASDIRECTED PRN Saline Lock Insert [OM.PC] Routine 02/06/20 18:13 Abdomen Pelvis wo Cont [CT] Stat
--- NOTE | 2020-02-06 19:19 | CT ---
INDICATION: Left low flank pain - groin pain. CT ABDOMEN AND PELVIS WITHOUT CONTRAST: Spiral 2.5 mm axial sections were obtained through the abdomen and pelvis without contrast - renal calculus protocol - with sagittal and coronal reconstructions 02/06/20 - no comparisons. Total exam DLP was 2186.49 mGy-cm. The lower lung bauer and pleural spaces included on the study were negative for an active process. The heart did not appear enlarged. No pericardial effusion was seen. No gallstones were demonstrated. The liver, spleen, adrenal glands, and for the most part kidneys appeared normal except to note some very minimal scarring of the renal cortices. The pancreas appeared fairly normal except for some calcifications in the tail area which may represent bouts of previous pancreatitis but should be correlated clinically. No retroperitoneal masses were seen. Retroperitoneal lymphadenopathy is minimal. Aortic and iliac artery calcifications are present but minimal. Inguinal hernias noted on the left included only fat. The appendix is absent compatible with history of its removal. No evidence of free air or bowel obstruction was seen. IMPRESSION: 1. Left-sided inguinal hernia of moderate size including only fat. 2. Mild renal cortical scarring especially on the left. No renal calcinosis or obstructive uropathy. Report was called to Dr. Bland at 1904 hours. [facility]
== END 2020-02-06 19:18 | disposition home or self-care (01) ==
LOC: FB.ED 17:01
DX: K40.90 Unilateral inguinal hernia, without obstruction or gangrene, not specified as recurrent (principal); E78.00 Pure hypercholesterolemia, unspecified; I10 Essential (primary) hypertension; E66.9 Obesity, unspecified; Z68.42 Body mass index [BMI] 45.0-49.9, adult; Z87.891 Personal history of nicotine dependence; Z88.8 Allergy status to other drugs, medicaments and biological substances; Z91.030 Bee allergy status; Z79.899 Other long term (current) drug therapy
CPT/HCPCS: 36415; 74176; 80053; 81001; 83690; 85025; 96374; 99284; J1170; J7030; 99283

== ENCOUNTER 2020-02-23 07:37 | Day surgery (SDC) | payer SELFPAY ==
[2020-02-23] MEDS ORDERED: fentaNYL 100 MCG/2 ML SDV IV ONE (07:38)
[2020-02-23] MEDS ORDERED: Dexamethasone 4 MG/ML 5 ML MDV IVPUSH ONE (07:38)
[2020-02-23] MEDS ORDERED: Ketorolac 30 MG/ML SDV IVPUSH ONE (07:38)
[2020-02-23] MEDS ORDERED: Ondansetron 4 MG/2 ML SDV IVPUSH ONE (07:38)
[2020-02-23] MEDS ORDERED: Lidocaine 2% 5 ML SDV INJECT ONE (07:38)
[2020-02-23] MEDS ORDERED: HYDROmorphone 2 MG/ML SDV IV ONE (07:38)
[2020-02-23] MEDS ORDERED: Propofol 200 MG/20 ML SDV IV ONE (07:38)
[2020-02-23] MEDS ORDERED: Lactated Ringers 1,000 ML IV ONE (07:38)
[2020-02-23] MEDS ORDERED: Midazolam 1 MG/ML 2 ML SDV IV ONE (07:38)
[2020-02-23] MEDS ORDERED: Lactated Ringers 1,000 ML IV SCH (09:30)
[2020-02-23] MEDS ORDERED: Sodium Chloride 0.9% 10 ML Syringe FLUSH PRN (09:30)
[2020-02-23] MEDS ORDERED: Bupivacaine 0.5% 30 ML SDV INJECT ONE (09:49)
[2020-02-23] MEDS ORDERED: Lidocaine 1% with EPINEPHrine 1:100,000 20 ML MDV INJECT ONE (09:50)
[2020-02-23] MEDS ORDERED: Acetaminophen/HYDROcodone 325-5 MG Tab PO PRN (10:52)
[2020-02-23] MEDS ORDERED: Morphine 2 MG/ML SYRINGE IVPUSH PRN (10:52)
--- NOTE | 2020-02-23 13:36 | OR ---
DATE OF OPERATION: 02/23/2020 SURGEON: Brandon Minor MD PROCEDURE PERFORMED: Left inguinal hernia repair with mesh. PREOPERATIVE DIAGNOSIS: Left inguinal hernia. POSTOPERATIVE DIAGNOSIS: Direct left inguinal hernia without obstruction or gangrene. INDICATIONS FOR PROCEDURE: This is a 40-year-old white male who is referred with a symptomatic left inguinal hernia. He was offered and accepted repair. INTRAOPERATIVE FINDINGS: As follows: A direct inguinal hernia was identified. This was repaired with a Bard mesh, preshaped mesh, reference #[id number], lot #[id number] with an expiration date of 01/12/2024. OptiFix fasteners were used to attach the mesh, and a grand total of 12 mL of 1:1 mixture of 1% lidocaine with epinephrine and 0.5% bupivacaine was used. DESCRIPTION OF OPERATION: After an excellent LMA anesthetic was used, the patient was prepped and draped in usual sterile manner. We did lay some [place]an over this as draping, due to his obesity. The area of the planned incision was then infiltrated with local mixture. A 12 cm incision was then made in the left inguinal area. The underlying subcu fat was divided using electrocautery. Inferior epigastric vessels were clamped, divided, and tied with 2-0 Vicryl ties. Yesika's fascia was divided, exposing the aponeurosis of the external oblique. What was notable was the ilioinguinal nerve did exit superior to the external ring. This was carefully preserved as we infiltrated the aponeurosis with more local and made a stab incision over the approximate level of the internal ring and carried out our incision out through the external ring. The cord was mobilized and skeletonized. The cord lipoma was reduced. The base of the cord was clamped, divided, and tied with a 2-0 Vicryl tie. The patient was noted to have a large direct hernia. The transversalis fascia was approximated with interrupted 0 Ethibond along the inguinal ligament to give us a flat surface for our mesh. The mesh was then placed on the floor of the canal with the spermatic cord going through the keyhole. This was tacked inferiorly with a running 2-0 Prolene. The keyhole was also closed with a running 2-0 Prolene as well. The OptiFix was then used to attach the mesh to the underlying floor of the inguinal canal on the transversalis fascia. The area was irrigated. The aponeurosis was very thin and patulous, but we were able to approximate it with a running 3-0 Vicryl. Yesika's fascia was closed with a 3-0 Vicryl as well and julia were used to close the skin. Needle, sponge, and instrument counts were reported as correct. The patient was taken to Recovery in good condition having tolerated the procedure well. Needle, sponge, and instrument counts were noted as correct as well. /[id number] /MODL
--- NOTE | 2020-02-27 09:48 | PCM.OPNOTE ---
- General Post-Op/Procedure Note Date of Surgery/Procedure: 02/23/20 Operative Procedure(s): LIH repair Findings: direct inguinal hernia Pre Op Diagnosis: lih Post-Op Diagnosis: Same Anesthesia Technique: General LMA, Local (1 % lido with epi/0.5% buvipicaine) Primary Surgeon: Brandon Minor Anesthesia Provider: Michael Delacruz Pathology: none Condition: Good Free Text/Narrative:: see dictation
== END 2020-02-23 12:28 | disposition home or self-care (01) ==
LOC: FB.SDS 07:37
PROVIDERS: ATTEND Surgery
DX: K40.90 Unilateral inguinal hernia, without obstruction or gangrene, not specified as recurrent (principal); D17.6 Benign lipomatous neoplasm of spermatic cord; I12.9 Hypertensive chronic kidney disease with stage 1 through stage 4 chronic kidney disease, or unspecified chronic kidney disease; N18.3 Chronic kidney disease, stage 3 (moderate); Z11.59 Encounter for screening for other viral diseases; Z87.891 Personal history of nicotine dependence; Z79.899 Other long term (current) drug therapy; Z88.8 Allergy status to other drugs, medicaments and biological substances; Z91.030 Bee allergy status
CPT/HCPCS: 00830; 49505; 87635; A9270; C1713; C1781; J0131; J0690; J1100; J1170; J1885; J2001; J2250; J2405; J2704; J3010; J3490; J7050; J7120; U0002

== ENCOUNTER 2020-02-25 19:02 | Emergency (ER) | payer SELFPAY ==
--- NOTE | 2020-02-25 19:32 | EDM.PDOC ---
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, has hc/apap 5/325 and took 2 tabs at noon that has helped some, has had burning pain since 8 AM at the incision and into the scrotum, feels like testes are on fire, very sensitive to touch last void 1h ago, PVR 48 ml here on bladder scanner POCUS done with no evidence of seroma h/o appy, no other previous abd surgery, no previous hernia surgery labs 19d ago with BUN/creat 45/2.2, AST/ALT/alk phos 28/51/124, TP 8.1, CBC neg labs 4m ago with uric acid 10.2 labs 1y ago with baseline BUN/creat 18/1.4 PMH ENT: toothache, gingivitis, dental caries ORTHO: back pain L4-5, sprain L foot : direct inguinal hernia on L SKIN: cellulitis, tattoo reaction MPMP with 16 tabs hc/apap 5/325 from 2d ago by Dr Looney, presviously 20 tabs hc/apap 5/325 on 02/[address] Bland (36 tabs of hc/apap 5/325 in past 18 days) left side groin Pain Score (Numeric/FACES): 10 - Related Data Allergies Allergy/AdvReac Type Severity Reaction Status Date / Time droperidol Allergy Muscle Verified 02/23/20 09:07 Aches hydrocortisone Allergy Hives Verified 02/23/20 09:07 ketorolac [From Toradol] Allergy Other Verified 02/23/20 11:31 NSAIDS (Non-Steroidal Allergy Other Verified 02/23/20 11:40 Anti-Inflamma prochlorperazine Allergy Cannot Verified 02/23/20 09:07 [From Compazine] Remember bees Allergy Anaphylaxis Uncoded 02/23/20 09:07 Home Meds: Home Meds Simvastatin 10 mg PO DAILY 06/15/19 [History] Multivitamin [Multivitamins] 1 each PO DAILY 02/22/20 [History] calcitrioL [Calcitriol] 0.25 mcg PO DAILY 02/22/20 [History] lisinopriL [Lisinopril] 40 mg PO DAILY 02/22/20 [History] Acetaminophen/HYDROcodone [[place] 325-5 MG] 1 - 2 tab PO Q6H PRN #16 tab 02/23/20 [Rx] Celecoxib [CeleBREX] 200 mg PO BID #10 cap 02/23/20 [Rx] Gabapentin [Neurontin] 100 mg PO TID #21 capsule 02/25/20 [Rx] Hydrocodone/Acetaminophen [[place] 5-325 Tablet] 1 each PO ASDIRECTED PRN #20 tablet 02/25/20 [Rx] Past Medical History Cardiovascular History: Reports: High Cholesterol, Hypertension Gastrointestinal History: Reports: GERD Genitourinary History: Reports: Chronic Renal Insuffiency, Other (See Below) Other Genitourinary History: IgA nephropathy Musculoskeletal History: Reports: Fracture Other Musculoskeletal History: Hx L ankle, L elbow, several fingers bilat hands Neurological History: Reports: Concussion, Migraines Psychiatric History: Reports: Anxiety, Depression, Psych Hospitalization(s), Suicide Attempt Endocrine/Metabolic History: Reports: Obesity/BMI 30+ Immunologic History: Reports: Other (See Below) Other Immunologic History: IG nephropathy - Infectious Disease History Infectious Disease History: Reports: Chicken Pox - Past Surgical History HEENT Surgical History: Reports: Oral Surgery Cardiovascular Surgical History: Reports: None GI Surgical History: Reports: Appendectomy Male Surgical History: Reports: Other (See Below) Other Male Surgeries/Procedures: kidney biopsy Musculoskeletal Surgical History: Reports: None Social & Family History - Family History Family Medical History: Noncontributory - Caffeine Use Caffeine Use: Reports: Soda ED ROS GENERAL - Review of Systems Review Of Systems: See Below Constitutional: Reports: No Symptoms HEENT: Reports: No Symptoms Respiratory: Reports: No Symptoms Cardiovascular: Reports: No Symptoms Endocrine: Reports: No Symptoms GI/Abdominal: Reports: Abdominal Pain : Reports: No Symptoms Musculoskeletal: Reports: No Symptoms Skin: Reports: No Symptoms Neurological: Reports: No Symptoms Psychiatric: Reports: No Symptoms Hematologic/Lymphatic: Reports: No Symptoms Immunologic: Reports: No Symptoms ED EXAM, GENERAL - Physical Exam Exam: See Below Exam Limited By: No Limitations General Appearance: Alert, WD/WN, Mild Distress, Other (nonill) Throat/Mouth: Normal Voice, No Airway Compromise Respiratory/Chest: No Respiratory Distress Cardiovascular: Regular Rate, Rhythm (Male) Exam: Other (julia intact, incision parallel and above L inguinal ligament, no skin red/warm/swell, minimal old ecchymosis below incision, mild STS c/w postop change, no fluid collection above or below incision to depth 4 cm on POCUS, mild swell scrotum, testes wnl, small amount of fluid in L inguinal sac above L testes) Back Exam: Normal Inspection, Full Range of Motion. No: CVA Tenderness (R), CVA Tenderness (L) Extremities: Normal Inspection, Normal Range of Motion, Non-Tender, No Pedal Edema Neurological: Alert, Oriented, CN II-XII Intact, Normal Cognition, Normal Gait, No Motor/Sensory Deficits Psychiatric: Normal Affect, Normal Mood Skin Exam: Warm, Dry, Intact, Normal Color, No Rash Lymphatic: No Adenopathy Course - Vital Signs Last Recorded V/S: Last Vital Signs Temp 36.7 C 02/25/20 19:02 Pulse 100 02/25/20 19:02 Resp 17 02/25/20 19:02 BP 141/90 H 02/25/20 19:02 Pulse Ox 99 02/25/20 19:02 - Orders/Labs/Meds Meds: Medications Discontinued Medications Generic Name Dose Route Start Last Admin Trade Name Chasity PRGuanako Reason Stop Dose Admin Hydromorphone HCl 1 mg 02/25/20 20:00 02/25/20 20:09 Dilaudid IM 02/25/20 20:01 1 mg ONETIME ONE Administration Ondansetron HCl 4 mg 02/25/20 20:00 02/25/20 20:09 Zofran Odt PO 02/25/20 20:01 4 mg ONETIME ONE Administration - Re-Assessments/Exams Free Text/Narrative Re-Assessment/Exam: 02/25/20 20:52 pt felt better after Dilaudid 1 mg IM and Zofran 4 mg ODT no complications of surgery noted appears to be doing well, should increase his pain med regimen Departure - Departure Time of Disposition: 20:42 Disposition: Home, Self-Care 01 Condition: Good Clinical Impression: Postoperative pain - Discharge Information *PRESCRIPTION DRUG MONITORING PROGRAM REVIEWED*: Yes *COPY OF PRESCRIPTION DRUG MONITORING REPORT IN PATIENT FELICE: Yes Prescriptions: Gabapentin [Neurontin] 100 mg PO TID #21 capsule Hydrocodone/Acetaminophen [[place] 5-325 Tablet] 1 each PO ASDIRECTED PRN #20 tablet PRN Reason: Pain Instructions: How to Use Cold Therapy Referrals: PCP,None [Primary Care Provider] - Additional Instructions: For pain, take hydrocodone/acetaminophen 5/325 mg 1-2 tabs every 6 hours, no alcohol. For pain, take a total of acetaminophen 325 mg 3 tabs 4 times a day. You will need to skip a regular acetaminophen 325 mg for each hydrocodone/acetaminophen 5/325 mg that you take. If you should take hydrocodone/acetaminophen 5/325 mg 2 tabs 4 times a day for the next several days, you would take only one acetaminophen 325 mg at the same time. You can take a maximum of 12 tabs in 24 hours that contain acetaminophen 325 mg. For nerve pain, also take gabapentin 100 mg 1 tabs 3 times a day. Use ice for 10 minutes every 2 hours [address] awake. See Dr Looney as scheduled, earlier if needed. Sepsis Event Note (ED) - Focused Exam Vital Signs: Vital Signs Temp Pulse Resp BP Pulse Ox 02/25/20 19:02 36.7 C 100 17 141/90 H 99
[2020-02-25] MEDS ORDERED: HYDROmorphone 2 MG/ML SDV IM ONE (20:00)
[2020-02-25] MEDS ORDERED: Ondansetron 4 MG Tab.DIS PO ONE (20:00)
[2020-02-25] MEDS ORDERED: Gabapentin 100 MG Cap PO ONE (20:41)
== END 2020-02-25 21:08 | disposition home or self-care (01) ==
LOC: FB.ED 19:02
DX: G89.18 Other acute postprocedural pain (principal); E78.00 Pure hypercholesterolemia, unspecified; I12.9 Hypertensive chronic kidney disease with stage 1 through stage 4 chronic kidney disease, or unspecified chronic kidney disease; N18.9 Chronic kidney disease, unspecified; E66.9 Obesity, unspecified; Z68.42 Body mass index [BMI] 45.0-49.9, adult; Z88.8 Allergy status to other drugs, medicaments and biological substances; Z88.6 Allergy status to analgesic agent; Z91.030 Bee allergy status; Z79.899 Other long term (current) drug therapy
CPT/HCPCS: 96372; 99283; A9270-GY; J1170

== ENCOUNTER 2020-07-24 16:18 | Emergency (ER) | payer MEDICAID ==
[2020-07-24] MEDS ORDERED: Ketorolac 60 MG/2 ML SDV IM ONE (17:22)
[2020-07-24] MEDS ORDERED: Cyclobenzaprine 10 MG Tab PO ONE (17:22)
[2020-07-24] MEDS ORDERED: Acetaminophen/oxyCODONE 325-5 MG Tab PO STA (17:22)
--- NOTE | 2020-07-24 18:11 | EDM.PDOC ---
ED HPI GENERAL MEDICAL PROBLEM - General Chief Complaint: Back Pain or Injury Stated Complaint: BACK PAIN Time Seen by Provider: 07/24/20 16:25 Source of Information: Reports: Patient History Limitations: Reports: No Limitations - History of Present Illness INITIAL COMMENTS - FREE TEXT/NARRATIVE: Patient presented to the ED because of acute low back pain. The kerry is sharp 8/10, worse with movements. There is no lost of bowel control. Denies having any recent trauma or injury. Back Pain Score (Numeric/FACES): 6 - Related Data Allergies Allergy/AdvReac Type Severity Reaction Status Date / Time droperidol Allergy Muscle Verified 07/24/20 17:26 Aches hydrocortisone Allergy Hives Verified 07/24/20 17:26 NSAIDS (Non-Steroidal Allergy Other Verified 07/24/20 17:26 Anti-Inflamma prochlorperazine Allergy Cannot Verified 07/24/20 17:26 [From Compazine] Remember bees Allergy Anaphylaxis Uncoded 07/24/20 17:26 Home Meds: Home Meds Simvastatin 10 mg PO DAILY 06/15/19 [History] Multivitamin [Multivitamins] 1 each PO DAILY 02/22/20 [History] calcitrioL [Calcitriol] 0.25 mcg PO DAILY 02/22/20 [History] lisinopriL [Lisinopril] 40 mg PO DAILY 02/22/20 [History] Acetaminophen/HYDROcodone [[place] 325-5 MG] 1 - 2 tab PO Q6H PRN #16 tab 02/23/20 [Rx] Celecoxib [CeleBREX] 200 mg PO BID #10 cap 02/23/20 [Rx] Gabapentin [Neurontin] 100 mg PO TID #21 capsule 02/25/20 [Rx] Hydrocodone/Acetaminophen [[place] 5-325 Tablet] 1 each PO ASDIRECTED PRN #20 tablet 02/25/20 [Rx] Acetaminophen/HYDROcodone [[place] 325-5 MG] 1 tab PO Q6H PRN #10 tab 07/24/20 [Rx] Cyclobenzaprine [Flexeril] 10 mg PO TID #30 tab 07/24/20 [Rx] Past Medical History Cardiovascular History: Reports: High Cholesterol, Hypertension Gastrointestinal History: Reports: GERD Genitourinary History: Reports: Chronic Renal Insuffiency, Other (See Below) Other Genitourinary History: IgA nephropathy Musculoskeletal History: Reports: Fracture Other Musculoskeletal History: Hx L ankle, L elbow, several fingers bilat hands Neurological History: Reports: Concussion, Migraines Psychiatric History: Reports: Anxiety, Depression, Psych Hospitalization(s), Suicide Attempt Endocrine/Metabolic History: Reports: Obesity/BMI 30+ Immunologic History: Reports: Other (See Below) Other Immunologic History: IG nephropathy - Infectious Disease History Infectious Disease History: Reports: Chicken Pox - Past Surgical History HEENT Surgical History: Reports: Oral Surgery Cardiovascular Surgical History: Reports: None GI Surgical History: Reports: Appendectomy Male Surgical History: Reports: Other (See Below) Other Male Surgeries/Procedures: kidney biopsy Musculoskeletal Surgical History: Reports: None Social & Family History - Family History Family Medical History: No Pertinent Family History - Caffeine Use Caffeine Use: Reports: Soda ED ROS GENERAL - Review of Systems Review Of Systems: See Below Constitutional: Reports: No Symptoms HEENT: Reports: No Symptoms Respiratory: Reports: No Symptoms Cardiovascular: Reports: No Symptoms Endocrine: Reports: No Symptoms GI/Abdominal: Reports: No Symptoms : Reports: No Symptoms Musculoskeletal: Reports: Back Pain Skin: Reports: No Symptoms ED EXAM,LOWER BACK PAIN/INJURY - Physical Exam Exam: See Below Exam Limited By: No Limitations General Appearance: Alert, No Apparent Distress Eye Exam: Bilateral Eye: PERRL Ears: Normal External Exam Nose: Normal Inspection, Normal Mucosa Throat/Mouth: Normal Inspection, Normal Lips Head: Atraumatic, Normocephalic Neck: Normal Inspection, Supple, Non-Tender Respiratory/Chest: No Respiratory Distress, Lungs Clear, Normal Breath Sounds Cardiovascular: Normal Peripheral Pulses, Regular Rate, Rhythm, No Edema GI/Abdominal: Normal Bowel Sounds, Soft, Non-Tender, No Organomegaly Back Exam: Muscle Spasm Extremities: Normal Inspection, Normal Range of Motion, Non-Tender Course - Vital Signs Text/Narrative:: Toradol 60 mg IM x1 Percocet 5/325, 2 po x1 Flexeril 10 mg PO x1 Last Recorded V/S: Last Vital Signs Temp 37.0 C 07/24/20 16:18 Pulse 81 07/24/20 16:18 Resp 18 07/24/20 16:18 BP 127/76 07/24/20 16:18 Pulse Ox 95 07/24/20 16:18 - Orders/Labs/Meds Meds: Medications Discontinued Medications Generic Name Dose Route Start Last Admin Trade Name Freq PRN Reason Stop Dose Admin Cyclobenzaprine HCl 10 mg 07/24/20 17:22 07/24/20 17:34 Flexeril PO 07/24/20 17:23 10 mg ONETIME ONE Administration Ketorolac Tromethamine 60 mg 07/24/20 17:22 07/24/20 17:32 Toradol IM 07/24/20 17:23 60 mg ONETIME ONE Administration Oxycodone/Acetaminophen 2 tab 07/24/20 17:22 07/24/20 17:33 Percocet 325-5 Mg PO 07/24/20 17:23 2 tab NOW STA Administration Departure - Departure Time of Disposition: 18:20 Disposition: Home, Self-Care 01 Condition: Good Clinical Impression: Low back pain - Discharge Information Prescriptions: Cyclobenzaprine [Flexeril] 10 mg PO TID #30 tab Acetaminophen/HYDROcodone [[place] 325-5 MG] 1 tab PO Q6H PRN #10 tab PRN Reason: Pain Instructions: Acute Back Pain, Adult Referrals: PCP,Not In Area [Primary Care Provider] - Forms: ED Department Discharge Additional Instructions: Please read discharge instructions on back pain Apply ice or heat whichever makes the pain feel better Take flexeril 10 mg 3 times daily as needed for muscle spasm [place] 1-2 tablets every 6 hours as needed for pain Follow up with your doctor if symptoms persist
== END 2020-07-24 18:20 | disposition home or self-care (01) ==
LOC: FB.ED 16:18
DX: M54.5 Low back pain (principal); E78.00 Pure hypercholesterolemia, unspecified; I12.9 Hypertensive chronic kidney disease with stage 1 through stage 4 chronic kidney disease, or unspecified chronic kidney disease; N18.9 Chronic kidney disease, unspecified; E66.9 Obesity, unspecified; Z88.8 Allergy status to other drugs, medicaments and biological substances; Z91.030 Bee allergy status
CPT/HCPCS: 96372; 99283; A9270-GY; J1885

== ENCOUNTER 2020-12-15 14:01 | Emergency (ER) | payer MEDICAID ==
[2020-12-15] MEDS ORDERED: Ondansetron 4 MG Tab.DIS PO ONE (14:02)
[2020-12-15] MEDS ORDERED: Ketorolac 30 MG/ML SDV IVPUSH ONE (14:45)
[2020-12-15] MEDS ORDERED: Ondansetron 4 MG/2 ML SDV IVPUSH ONE (14:45)
[2020-12-15] MEDS ORDERED: Sodium Chloride 0.9% 1,000 ML IV SCH (14:45)
--- NOTE | 2020-12-15 15:00 | EDM.PDOC ---
ED HPI GENERAL MEDICAL PROBLEM - General Chief Complaint: Gastrointestinal Problem Stated Complaint: ??? Time Seen by Provider: 12/15/20 14:25 Source of Information: Reports: Patient History Limitations: Reports: No Limitations - History of Present Illness INITIAL COMMENTS - FREE TEXT/NARRATIVE: c/o syncope pt with n/v x 1w, no abd pain altho he says his stomach does "somersaults" in the epigastrium and he has to hurry to bathroom to v not sure why he has n/v, worse in AM when he awakes, not had before awoke 6a today, drank some water today, only food is a cup of soup at 10a, some N now pt is moving, he carried [address], stomach began to do somersault, inc'd N, he set down 2 boxes and went to bathroom, he remains throwing up into toilet, then was on the floor in bathroom with his gfriend slapping face, said he was fully alert he then came to ED o supper last night, drank some milk to try to settle down his stomach has had occasional burning in epigastrium stopped cigs yrs ago, no HTC, drinks 2 beers 1s/wk, sometimes a shot of hard liquor, Red Bull some mornings but not daily, o regular caffeine at age 14 he has "a lower intestinal problem," not able to poop, had to drink a chalky substance, does not know what the problem was last BM 1 ago, small and soft labs: 6m ago: CBC neg, B/cr 30/1.7 with GFR 45, AST/ALT/alk phos 36/76/120 1y ago: lipase neg, u/a neg, uric acid 10.2 vaccines: has had COVID vax, never had COVID SH: 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, very boring, quit 1m ago, has a new job delivering packages for [employer] but ot started yet, lives with gfried and 2 children, son 4.5 yo, dtr 10m PSH: appy, LIH repair meds: includes lis 40/d V worse in middle of night and when he awakes in AM - Related Data Allergies Allergy/AdvReac Type Severity Reaction Status Date / Time droperidol Allergy Muscle Verified 12/15/20 14:21 Aches hydrocortisone Allergy Hives Verified 12/15/20 14:21 NSAIDS (Non-Steroidal Allergy Other Verified 12/15/20 14:21 Anti-Inflamma prochlorperazine Allergy Cannot Verified 12/15/20 14:21 [From Compazine] Remember bees Allergy Anaphylaxis Uncoded 12/15/20 14:21 Home Meds: Home Meds Simvastatin 10 mg PO DAILY 06/15/19 [History] Multivitamin [Multivitamins] 1 each PO DAILY 02/22/20 [History] calcitrioL [Calcitriol] 0.25 mcg PO DAILY 02/22/20 [History] lisinopriL [Lisinopril] 40 mg PO DAILY 02/22/20 [History] Acetaminophen/HYDROcodone [[place] 325-5 MG] 1 - 2 tab PO Q6H PRN #16 tab 02/23/20 [Rx] Celecoxib [CeleBREX] 200 mg PO BID #10 cap 02/23/20 [Rx] Gabapentin [Neurontin] 100 mg PO TID #21 capsule 02/25/20 [Rx] Hydrocodone/Acetaminophen [[place] 5-325 Tablet] 1 each PO ASDIRECTED PRN #20 tablet 02/25/20 [Rx] Acetaminophen/HYDROcodone [[place] 325-5 MG] 1 tab PO Q6H PRN #10 tab 07/24/20 [Rx] Cyclobenzaprine [Flexeril] 10 mg PO TID #30 tab 07/24/20 [Rx] Ondansetron [Ondansetron ODT] 4 mg PO Q6H PRN #8 tab.rapdis 12/15/20 [Rx] Past Medical History - Past Health History Medical/Surgical History: Denies Medical/Surgical History HEENT History: Reports: Impaired Vision Other HEENT History: uses eye glasses. Cardiovascular History: Reports: High Cholesterol, Hypertension Gastrointestinal History: Reports: GERD Genitourinary History: Reports: Chronic Renal Insuffiency, Other (See Below) Other Genitourinary History: IgA nephropathy Musculoskeletal History: Reports: Fracture Other Musculoskeletal History: Hx L ankle, L elbow, several fingers bilat hands Neurological History: Reports: Concussion, Migraines Psychiatric History: Reports: Anxiety, Depression, Psych Hospitalization(s), Suicide Attempt Endocrine/Metabolic History: Reports: Obesity/BMI 30+ Immunologic History: Reports: Other (See Below) Other Immunologic History: IG nephropathy - Infectious Disease History Infectious Disease History: Reports: Chicken Pox - Past Surgical History HEENT Surgical History: Reports: Oral Surgery Cardiovascular Surgical History: Reports: None GI Surgical History: Reports: Appendectomy Male Surgical History: Reports: Other (See Below) Other Male Surgeries/Procedures: kidney biopsy Musculoskeletal Surgical History: Reports: None Social & Family History - Family History Family Medical History: No Pertinent Family History - Tobacco Use Tobacco Use Status *Q: Unknown Ever Used Tobacco Second Hand Smoke Exposure: No - Caffeine Use Caffeine Use: Reports: Energy Drinks Other Caffeine Use: sometime I have a redbull - Recreational Drug Use Recreational Drug Use: No ED ROS GENERAL - Review of Systems Review Of Systems: See Below Constitutional: Reports: Decreased Appetite. Denies: Fever, Chills, Weakness, Fatigue, Night Sweats, Diaphoresis HEENT: Reports: No Symptoms Respiratory: Reports: No Symptoms. Denies: Shortness of Breath, Cough Cardiovascular: Reports: No Symptoms. Denies: Chest Pain Endocrine: Reports: No Symptoms GI/Abdominal: Reports: Abdominal Pain, Nausea, Vomiting : Reports: No Symptoms Musculoskeletal: Reports: Other (chronic back pain) Skin: Reports: No Symptoms Neurological: Reports: No Symptoms Psychiatric: Reports: No Symptoms Hematologic/Lymphatic: Reports: No Symptoms Immunologic: Reports: No Symptoms ED EXAM, GI/ABD - Physical Exam Exam: See Below Exam Limited By: No Limitations General Appearance: Alert, WD/WN, No Apparent Distress, Other (alert, pleasant, nonill, normal speech, holding emesis bag) Ears: Hearing Grossly Normal Nose: Normal Inspection, Normal Mucosa, No Blood Throat/Mouth: Normal Inspection, Normal Lips, Normal Teeth, Normal Gums, Normal Oropharynx, Normal Voice, No Airway Compromise Head: Atraumatic, Normocephalic Neck: Normal Inspection, Supple, Non-Tender, Full Range of Motion. No: Lymphadenopathy (R), Lymphadenopathy (L) Respiratory/Chest: No Respiratory Distress, Lungs Clear, Normal Breath Sounds, No Accessory Muscle Use, Chest Non-Tender Cardiovascular: Regular Rate, Rhythm, No Edema, No Gallop, No Murmur GI/Abdominal Exam: Normal Bowel Sounds, Soft, No Organomegaly, No Distention, Other (very mild tender throughout, 1+ tender at epigastrium and LUQ, no inc'd tender [place]) Back Exam: Normal Inspection, Full Range of Motion. No: CVA Tenderness (R), CVA Tenderness (L) Extremities: Normal Inspection, Normal Range of Motion, Non-Tender, No Pedal Edema, Other (turgor wnl to minimally dec'd, no tenting) Neurological: Alert, Oriented, CN II-XII Intact, Normal Cognition, Normal Gait, No Motor/Sensory Deficits Psychiatric: Normal Affect, Normal Mood Skin Exam: Warm, Dry, Intact, Normal Color, No Rash Lymphatic: No Adenopathy Course - Vital Signs Last Recorded V/S: Last Vital Signs Temp 36.7 C 12/15/20 14:22 Pulse 88 12/15/20 16:26 Resp 22 H 12/15/20 16:26 BP 147/98 H 12/15/20 16:26 Pulse Ox 97 12/15/20 16:26 Orthostatic Blood Pressure [] 154/100 Orthostatic Blood Pressure [] 149/108 Orthostatic Blood Pressure [] 149/95 - Orders/Labs/Meds Orders: Active Orders 24 hr Category Date Time Status EKG Documentation Completion [RC] ASDIRECTED Care 12/15/20 14:45 Ordered Abdomen Pelvis w Cont [CT] Stat Exams 12/15/20 14:46 Stop Req Abdomen Pelvis wo Cont [CT] Stat Exams 12/15/20 15:52 Ordered Sodium Chloride 0.9% [Normal Saline] 1,000 ml Med 12/15/20 14:45 Ordered IV ASDIRECTED EKG 12 Lead [EK] Routine Ther 12/15/20 14:45 Ordered Medication Orders Sodium Chloride (Normal Saline) 1,000 mls @ 999 mls/hr IV ASDIRECTED MARIO ALBERTO Last Admin: 12/15/20 15:30 Dose: 999 mls/hr Documented by: CONOR Labs: Laboratory Tests 12/15/20 12/15/20 12/15/20 Range/Units 15:00 15:00 15:00 WBC 8.8 (3.2-10.1) x10-3/uL RBC 5.23 (3.90-5.90) x10(6)uL Hgb 15.7 (12.9-17.7) g/dL Hct 47.3 (38.3-50.1) % MCV 90.3 (80.8-98.7) fL MCH 29.9 (27.0-33.3) pg MCHC 33.1 (28.7-35.3) g/dL RDW 15.0 (12.4-15.0) % Plt Count 317 (117-477) x10(3)uL MPV 7.2 (6.7-11.0) fL Neut % (Auto) 67.8 (40.3-71.8) % Lymph % (Auto) 24.7 (15.8-45.3) % Nelson % (Auto) 5.2 L (5.5-15.2) % Eos % (Auto) 1.2 (0.1-6.8) % Baso % (Auto) 1.1 (0.3-3.8) % Neut # (Auto) 5.9 (1.7-6.9) x10-3/uL Lymph # (Auto) 2.2 (0.5-4.5) x10-3/uL Nelson # (Auto) 0.5 (0.0-1.2) x10-3/uL Eos # (Auto) 0.1 (0.0-0.6) x10-3/uL Baso # (Auto) 0.1 (0.0-0.3) x10-3/uL Sodium 138 (135-145) mmol/L Potassium 4.2 (3.5-5.3) mmol/L Chloride 100 (100-110) mmol/L Carbon Dioxide 25 (21-32) mmol/L BUN 25 H (7-18) mg/dL Creatinine 2.1 H* (0.70-1.30) mg/dL Est Cr Clr Drug Dosing 46.14 mL/min Estimated GFR (MDRD) 36 L (>60) BUN/Creatinine Ratio 11.9 (9-20) Glucose 105 (80-116) mg/dL Lactic Acid (0.4-2.0) mmol/L Uric Acid (2.6-6.0) mg/dL Calcium 8.8 (8.6-10.2) mg/dL Total Bilirubin 0.3 (0.1-1.3) mg/dL AST 41 H D (5-25) IU/L ALT 79 H (12-36) U/L Alkaline Phosphatase 132 H (56-112) IU/L Troponin I 7.6 (4.0-60.3) pg/mL C-Reactive Protein 1.8 H (0.5-0.9) mg/dL Total Protein 8.1 H (6.0-8.0) g/dL Albumin 3.4 L (3.5-5.2) g/dL Globulin 4.7 g/dL Albumin/Globulin Ratio 0.7 Lipase 144 (73-393) U/L Urine Color (YELLOW) Urine Appearance (CLEAR) Urine pH (5.0-6.5) Ur Specific Walker (1.010-1.025) Urine Protein (NEGATIVE) mg/dL Urine Glucose (UA) (NORMAL) mg/dL Urine Ketones (NEGATIVE) mg/dL Urine Occult Blood (NEGATIVE) Urine Nitrite (NEGATIVE) Urine Bilirubin (NEGATIVE) Urine Urobilinogen (NEGATIVE) mg/dL Ur Leukocyte Esterase (NEGATIVE) Urine RBC (0-5) Urine WBC (0-5) Ur Epithelial Cells Urine Bacteria (NS) 12/15/20 12/15/20 12/15/20 Range/Units 15:00 15:00 15:15 WBC (3.2-10.1) x10-3/uL RBC (3.90-5.90) x10(6)uL Hgb (12.9-17.7) g/dL Hct (38.3-50.1) % MCV (80.8-98.7) fL MCH (27.0-33.3) pg MCHC (28.7-35.3) g/dL RDW (12.4-15.0) % Plt Count (117-477) x10(3)uL MPV (6.7-11.0) fL Neut % (Auto) (40.3-71.8) % Lymph % (Auto) (15.8-45.3) % Nelson % (Auto) (5.5-15.2) % Eos % (Auto) (0.1-6.8) % Baso % (Auto) (0.3-3.8) % Neut # (Auto) (1.7-6.9) x10-3/uL Lymph # (Auto) (0.5-4.5) x10-3/uL Nelson # (Auto) (0.0-1.2) x10-3/uL Eos # (Auto) (0.0-0.6) x10-3/uL Baso # (Auto) (0.0-0.3) x10-3/uL Sodium (135-145) mmol/L Potassium (3.5-5.3) mmol/L Chloride (100-110) mmol/L Carbon Dioxide (21-32) mmol/L BUN (7-18) mg/dL Creatinine (0.70-1.30) mg/dL Est Cr Clr Drug Dosing mL/min Estimated GFR (MDRD) (>60) BUN/Creatinine Ratio (9-20) Glucose (80-116) mg/dL Lactic Acid 1.4 (0.4-2.0) mmol/L Uric Acid 11.7 H* (2.6-6.0) mg/dL Calcium (8.6-10.2) mg/dL Total Bilirubin (0.1-1.3) mg/dL AST (5-25) IU/L ALT (12-36) U/L Alkaline Phosphatase (56-112) IU/L Troponin I (4.0-60.3) pg/mL C-Reactive Protein (0.5-0.9) mg/dL Total Protein (6.0-8.0) g/dL Albumin (3.5-5.2) g/dL Globulin g/dL Albumin/Globulin Ratio Lipase (73-393) U/L Urine Color Yellow (YELLOW) Urine Appearance Clear (CLEAR) Urine pH 5.0 (5.0-6.5) Ur Specific Walker 1.020 (1.010-1.025) Urine Protein Trace (NEGATIVE) mg/dL Urine Glucose (UA) Normal (NORMAL) mg/dL Urine Ketones Negative (NEGATIVE) mg/dL Urine Occult Blood Negative (NEGATIVE) Urine Nitrite Negative (NEGATIVE) Urine Bilirubin Negative (NEGATIVE) Urine Urobilinogen Normal (NEGATIVE) mg/dL Ur Leukocyte Esterase Negative (NEGATIVE) Urine RBC 0-5 (0-5) Urine WBC 0-5 (0-5) Ur Epithelial Cells Occasional Urine Bacteria Rare H (NS) Meds: Medications Generic Name Dose Route Start Last Admin Trade Name Freq PRN Reason Stop Dose Admin Sodium Chloride 1,000 mls @ 999 mls/hr 12/15/20 14:45 12/15/20 15:30 Normal Saline IV 999 mls/hr ASDIRECTED MARIO ALBERTO Administration Discontinued Medications Generic Name Dose Route Start Last Admin Trade Name Chasity PRN Reason Stop Dose Admin Ketorolac Tromethamine 30 mg 12/15/20 14:45 12/15/20 15:10 Ketorolac 30 Mg/Ml Sdv IVPUSH 12/15/20 14:46 Not Given ONETIME ONE Ondansetron HCl 4 mg 12/15/20 14:45 12/15/20 15:32 Ondansetron 4 Mg/2 Ml Sdv IVPUSH 12/15/20 14:46 4 mg ONETIME ONE Administration - Re-Assessments/Exams Free Text/Narrative Re-Assessment/Exam: 12/15/20 17:02 BP 149/95 and HR 89 supine BP 154/100 and HR 101 standing 12/15/20 17:34 pt with IgA nephropathy since age 17, sees Dr Delgado (?sp) at [facility] on steroids in past, told he will eventually need dialysis pt with inc'd creat in past yr CT abd/pelvis without contrast is neg for acute changes N gone after one dose Zofran 4 mg IV N/V are c/w uremia no clinical evidence, does have mild inc of CRP, possibly d/t nephropathy only trace protein in urine pt agrees to close f/u with wet process miller head vasovagal syncope in bathroom d/t poor oral intake, exertion of moving and Valsalva from vomiting EKG is wnl Departure - Departure Time of Disposition: 17:29 Disposition: DC/Tfer to [facility] Condition: Good Clinical Impression: Nausea & vomiting, Vasovagal syncope, Uremia, IgA nephropathy, Fatty liver, Hyperuricemia - Discharge Information *PRESCRIPTION DRUG MONITORING PROGRAM REVIEWED*: Not Applicable *COPY OF PRESCRIPTION DRUG MONITORING REPORT IN PATIENT FELICE: Not Applicable Instructions: Nausea and Vomiting, Adult, Syncope, Uremia Forms: ED Department Discharge Additional Instructions: Continue current medications. However, contact your wet process miller head in 2 days on Thursday to see if changes need to be made. For nausea, take ondansetron ODT 4 mg 1 tab under the tongue every 4-6 hours as needed. See your wet process miller head in the next week for further recommendations. You will likely need medication to lower your uric acid level, as well as other possible adjustments. Return to Emergency Department if you are feeling worse. Sepsis Event Note (ED) - Evaluation Sepsis Screening Result: No Definite Risk - Focused Exam Vital Signs: Vital Signs Temp Pulse Resp BP Pulse Ox 12/15/20 16:26 88 22 H 147/98 H 97 12/15/20 14:22 36.7 C 95 20 155/98 H 100 - My Orders Last 24 Hours: My Active Orders 12/15/20 14:45 EKG Documentation Completion [RC] ASDIRECTED Sodium Chloride 0.9% [Normal Saline] 1,000 ml IV ASDIRECTED EKG 12 Lead [EK] Routine 12/15/20 14:46 Abdomen Pelvis w Cont [CT] Stat 12/15/20 15:52 Abdomen Pelvis wo Cont [CT] Stat - Assessment/Plan Last 24 Hours: My Active Orders 12/15/20 14:45 EKG Documentation Completion [RC] ASDIRECTED Sodium Chloride 0.9% [Normal Saline] 1,000 ml IV ASDIRECTED EKG 12 Lead [EK] Routine 12/15/20 14:46 Abdomen Pelvis w Cont [CT] Stat 12/15/20 15:52 Abdomen Pelvis wo Cont [CT] Stat
== END 2020-12-15 17:42 ==
LOC: FB.ED 14:01
DX: R55 Syncope and collapse (principal); R11.2 Nausea with vomiting, unspecified; E79.0 Hyperuricemia without signs of inflammatory arthritis and tophaceous disease; G62.9 Polyneuropathy, unspecified; E78.00 Pure hypercholesterolemia, unspecified; I10 Essential (primary) hypertension; K21.9 Gastro-esophageal reflux disease without esophagitis; E66.9 Obesity, unspecified; Z79.899 Other long term (current) drug therapy; Z68.43 Body mass index [BMI] 50.0-59.9, adult
CPT/HCPCS: 36415; 74176; 80053; 81001; 83605; 83690; 84484; 84550; 85025; 86140; 93005; 96374; 99285; A9270; J2405; J7030

== ENCOUNTER 2021-01-09 23:42 | Emergency (ER) | payer MEDICAID ==
[2021-01-09] MEDS ORDERED: traMADol 50 MG Tab PO ONE (23:43)
[2021-01-10] MEDS ORDERED: Ketorolac 30 MG/ML SDV IM ONE (00:28)
--- NOTE | 2021-01-10 04:33 | ER ---
DATE SEEN: 01/09/2021 CHIEF COMPLAINT: Injury of the right ankle. HISTORY OF PRESENT ILLNESS: This is a 40-year-old male complaining of pain in the right foot. He rolled it at home going downstairs. Moderate pain and swelling. Nothing seems to help. PAST MEDICAL HISTORY: Obesity, IgA nephropathy. SOCIAL HISTORY: Works at [employer]. PHYSICAL EXAMINATION: VITAL SIGNS: Normal. EXTREMITIES: Right foot tenderness and swelling at the dorsum. X-ray, nothing acute to my opinion and independent review of the image. IMPRESSION: Soft tissue injury, right foot. PLAN: 1. Toradol 60 mg IM. 2. Tramadol 50 mg t.i.d. p.r.n. only 4 tablets. 3. Follow up in the office in 1 to 2 days. /[id number] KORINA/LEVI
--- NOTE | 2021-01-10 10:51 | CR ---
INDICATION: Jammed first digit - pain first digit and first metatarsal. RIGHT FOOT: Three views of the right foot were obtained 01/10/21 - no comparison. There are some mild degenerative changes at the first metatarsophalangeal joint. Soft tissue swelling is noted overlying the dorsum of the foot at the level of the mid to distal metatarsals. An acute fracture, dislocation or other significant bone or joint abnormality, was not identified. If symptoms persist - if occult fracture site is suspected clinically, reexamination in 10-14 days may be helpful. MTDD
== END 2021-01-10 00:53 | disposition home or self-care (01) ==
LOC: FB.ED 23:42
DX: S99.921A Unspecified injury of right foot, initial encounter (principal); W22.8XXA Striking against or struck by other objects, initial encounter; Y92.009 Unspecified place in unspecified non-institutional (private) residence as the place of occurrence of the external cause
CPT/HCPCS: 73630-RT; 96372; 99283; A9270-GY; J1885

== ENCOUNTER 2021-02-27 21:12 | Emergency (ER) | payer MEDICAID ==
[2021-02-27] MEDS ORDERED: Codeine/guaiFENesin 100mg-10 MG/5 ML Soln 118 ML Bottle PO ONE (21:13)
[2021-02-27] MEDS ORDERED: hydrOXYzine HCl 50 MG/ML SDV IM ONE (21:23)
[2021-02-27] MEDS ORDERED: Morphine 10 MG/ML SDV IM ONE (21:23)
--- NOTE | 2021-02-27 21:26 | EDM.PDOC ---
ED HPI GENERAL MEDICAL PROBLEM - General Stated Complaint: POSSIBLE COVID Time Seen by Provider: 02/27/21 21:23 Source of Information: Reports: Patient History Limitations: Reports: No Limitations - History of Present Illness INITIAL COMMENTS - FREE TEXT/NARRATIVE: Ryder complains of a headache since this morning. Associated and made worse by coughing. He also has myalgias,sweating.He has facial pressure.No fever,chills.Has a h/o IGa Nephropathy Headache Pain Score (Numeric/FACES): 6 - Related Data Allergies Allergy/AdvReac Type Severity Reaction Status Date / Time droperidol Allergy Muscle Verified 02/27/21 22:36 Aches hydrocortisone Allergy Hives Verified 02/27/21 22:36 NSAIDS (Non-Steroidal Allergy Other Verified 02/27/21 22:36 Anti-Inflamma prochlorperazine Allergy Cannot Verified 02/27/21 22:36 [From Compazine] Remember bees Allergy Anaphylaxis Uncoded 02/27/21 22:36 Home Meds: Home Meds Simvastatin 10 mg PO DAILY 06/15/19 [History] Multivitamin [Multivitamins] 1 each PO DAILY 02/22/20 [History] calcitrioL [Calcitriol] 0.25 mcg PO DAILY 02/22/20 [History] lisinopriL [Lisinopril] 40 mg PO DAILY 02/22/20 [History] Past Medical History - Past Health History Medical/Surgical History: Denies Medical/Surgical History HEENT History: Reports: Impaired Vision Other HEENT History: uses eye glasses. Cardiovascular History: Reports: High Cholesterol, Hypertension Gastrointestinal History: Reports: GERD Genitourinary History: Reports: Chronic Renal Insuffiency, Other (See Below) Other Genitourinary History: IgA nephropathy Musculoskeletal History: Reports: Fracture Other Musculoskeletal History: Hx L ankle, L elbow, several fingers bilat hands Neurological History: Reports: Concussion, Migraines Psychiatric History: Reports: Anxiety, Depression, Psych Hospitalization(s), Suicide Attempt Endocrine/Metabolic History: Reports: Obesity/BMI 30+ Immunologic History: Reports: Other (See Below) Other Immunologic History: IG nephropathy - Infectious Disease History Infectious Disease History: Reports: Chicken Pox - Past Surgical History HEENT Surgical History: Reports: Oral Surgery Cardiovascular Surgical History: Reports: None GI Surgical History: Reports: Appendectomy Male Surgical History: Reports: Other (See Below) Other Male Surgeries/Procedures: kidney biopsy Neurological Surgical History: Reports: None Musculoskeletal Surgical History: Reports: None Social & Family History - Family History Family Medical History: No Pertinent Family History - Caffeine Use Caffeine Use: Reports: Soda Other Caffeine Use: sometime I have a redbull ED ROS GENERAL - Review of Systems Review Of Systems: Comprehensive ROS is negative, except as noted in HPI. - Physical Exam Exam: See Below Exam Limited By: No Limitations General Appearance: Alert, WD/WN Ears: Normal External Exam Nose: Normal Inspection Throat/Mouth: Normal Inspection Neck: Normal Inspection Respiratory/Chest: No Respiratory Distress, Wheezing Cardiovascular: Normal Peripheral Pulses GI/Abdominal: Normal Bowel Sounds, Soft Neuro Exam (Abbreviated): Alert, Oriented Course - Vital Signs Last Recorded V/S: Last Vital Signs Temp 97.5 F 02/27/21 21:25 Pulse 88 02/27/21 21:25 Resp 20 02/27/21 21:25 BP 112/66 02/27/21 21:25 Pulse Ox 96 02/27/21 21:25 - Orders/Labs/Meds Orders: Active Orders 24 hr Category Date Time Status CXR [Chest 2V] [CR] Stat Exams 02/27/21 21:22 Taken Sodium Chloride 0.9% [Normal Saline] 1,000 ml Med 02/27/21 22:45 Active IV ASDIRECTED Sodium Chloride 0.9% [Saline Flush] Med 02/27/21 22:39 Active 10 ml FLUSH ASDIRECTED PRN Peripheral IV Insertion Adult [OM.PC] Routine Oth 02/27/21 22:39 Ordered Medication Orders Sodium Chloride (Normal Saline) 1,000 mls @ 999 mls/hr IV ASDIRECTED MARIO ALBERTO Last Admin: 02/27/21 22:47 Dose: 999 mls/hr Documented by: CLARK Sodium Chloride (Sodium Chloride 0.9% 10 Ml Syringe) 10 ml FLUSH ASDIRECTED PRN PRN Reason: Keep Vein Open Labs: Laboratory Tests 02/27/21 02/27/21 02/27/21 Range/Units 21:40 21:40 21:40 WBC 8.4 (3.2-10.1) x10-3/uL RBC 4.78 (3.90-5.90) x10(6)uL Hgb 14.4 (12.9-17.7) g/dL Hct 43.2 (38.3-50.1) % MCV 90.5 (80.8-98.7) fL MCH 30.2 (27.0-33.3) pg MCHC 33.4 (28.7-35.3) g/dL RDW 14.2 (12.4-15.0) % Plt Count 258 (117-477) x10(3)uL MPV 7.5 (6.7-11.0) fL Neut % (Auto) 79.2 H (40.3-71.8) % Lymph % (Auto) 12.5 L (15.8-45.3) % [place] % (Auto) 6.6 (5.5-15.2) % Eos % (Auto) 1.1 (0.1-6.8) % Baso % (Auto) 0.6 (0.3-3.8) % Neut # (Auto) 6.7 (1.7-6.9) x10-3/uL Lymph # (Auto) 1.1 (0.5-4.5) x10-3/uL [place] # (Auto) 0.6 (0.0-1.2) x10-3/uL Eos # (Auto) 0.1 (0.0-0.6) x10-3/uL Baso # (Auto) 0.0 (0.0-0.3) x10-3/uL Sodium 134 L (135-145) mmol/L Potassium 4.8 (3.5-5.3) mmol/L Chloride 98 L (100-110) mmol/L Carbon Dioxide 24 (21-32) mmol/L BUN 44 H D (7-18) mg/dL Creatinine 2.8 H* (0.70-1.30) mg/dL Est Cr Clr Drug Dosing TNP Estimated GFR (MDRD) 25 L (>60) BUN/Creatinine Ratio 15.7 (9-20) Glucose 97 (80-116) mg/dL Calcium 9.8 (8.6-10.2) mg/dL Troponin I 4.3 (4.0-60.3) pg/mL SARS-CoV-2 RNA (JANEY) (NEGATIVE) 02/27/21 Range/Units 21:45 WBC (3.2-10.1) x10-3/uL RBC (3.90-5.90) x10(6)uL Hgb (12.9-17.7) g/dL Hct (38.3-50.1) % MCV (80.8-98.7) fL MCH (27.0-33.3) pg MCHC (28.7-35.3) g/dL RDW (12.4-15.0) % Plt Count (117-477) x10(3)uL MPV (6.7-11.0) fL Neut % (Auto) (40.3-71.8) % Lymph % (Auto) (15.8-45.3) % [place] % (Auto) (5.5-15.2) % Eos % (Auto) (0.1-6.8) % Baso % (Auto) (0.3-3.8) % Neut # (Auto) (1.7-6.9) x10-3/uL Lymph # (Auto) (0.5-4.5) x10-3/uL [place] # (Auto) (0.0-1.2) x10-3/uL Eos # (Auto) (0.0-0.6) x10-3/uL Baso # (Auto) (0.0-0.3) x10-3/uL Sodium (135-145) mmol/L Potassium (3.5-5.3) mmol/L Chloride (100-110) mmol/L Carbon Dioxide (21-32) mmol/L BUN (7-18) mg/dL Creatinine (0.70-1.30) mg/dL Est Cr Clr Drug Dosing Estimated GFR (MDRD) (>60) BUN/Creatinine Ratio (9-20) Glucose (80-116) mg/dL Calcium (8.6-10.2) mg/dL Troponin I (4.0-60.3) pg/mL SARS-CoV-2 RNA (JANEY) Negative (NEGATIVE) Meds: Medications Generic Name Dose Route Start Last Admin Trade Name Freq PRN Reason Stop Dose Admin Sodium Chloride 1,000 mls @ 999 mls/hr 02/27/21 22:45 02/27/21 22:47 Normal Saline IV 999 mls/hr ASDIRECTED MARIO ALBERTO Administration Sodium Chloride 10 ml 07/14/21 22:39 Sodium Chloride 0.9% 10 Ml Syringe FLUSH ASDIRECTED PRN Keep Vein Open Discontinued Medications Generic Name Dose Route Start Last Admin Trade Name Chasity PRN Reason Stop Dose Admin Hydroxyzine HCl 50 mg 02/27/21 21:23 02/27/21 22:39 Hydroxyzine Hcl 50 Mg/Ml Sdv IM 02/27/21 21:24 50 mg ONETIME ONE Administration Morphine Sulfate 10 mg 02/27/21 21:23 02/27/21 22:39 Morphine 10 Mg/Ml Sdv IM 02/27/21 21:24 10 mg ONETIME ONE Administration Departure - Departure Time of Disposition: 23:27 Disposition: Home, Self-Care 01 Clinical Impression: Cough, IgA nephropathy Headache Qualifiers: Headache type: tension-type - Discharge Information Sepsis Event Note (ED) - Focused Exam Vital Signs: Vital Signs Temp Pulse Resp BP Pulse Ox 02/27/21 21:25 97.5 F 88 20 112/66 96 - Problem List & Annotations (1) Cough SNOMED Code(s): 34443495 Code(s): R05 - COUGH Status: Acute (2) Headache SNOMED Code(s): 31909597 Code(s): R51.9 - HEADACHE, UNSPECIFIED Status: Acute Qualifiers: Headache type: tension-type - Problem List Review Problem List Initiated/Reviewed/Updated: Yes - My Orders Last 24 Hours: My Active Orders 02/27/21 21:22 CXR [Chest 2V] [CR] Stat 02/27/21 22:39 Sodium Chloride 0.9% [Saline Flush] 10 ml FLUSH ASDIRECTED PRN Peripheral IV Insertion Adult [OM.PC] Routine 02/27/21 22:45 Sodium Chloride 0.9% [Normal Saline] 1,000 ml IV ASDIRECTED - Assessment/Plan Last 24 Hours: My Active Orders 02/27/21 21:22 CXR [Chest 2V] [CR] Stat 02/27/21 22:39 Sodium Chloride 0.9% [Saline Flush] 10 ml FLUSH ASDIRECTED PRN Peripheral IV Insertion Adult [OM.PC] Routine 02/27/21 22:45 Sodium Chloride 0.9% [Normal Saline] 1,000 ml IV ASDIRECTED Plan: CXR normal. I gave him Robitussin AC . Follow up on Thursday with PCP
[2021-02-27] MEDS ORDERED: Sodium Chloride 0.9% 10 ML Syringe FLUSH PRN (22:39)
[2021-02-27] MEDS ORDERED: Sodium Chloride 0.9% 1,000 ML IV SCH (22:45)
== END 2021-02-27 23:50 | disposition home or self-care (01) ==
LOC: FB.ED 21:12
DX: G44.209 Tension-type headache, unspecified, not intractable (principal); R05 Cough; E78.00 Pure hypercholesterolemia, unspecified; I12.9 Hypertensive chronic kidney disease with stage 1 through stage 4 chronic kidney disease, or unspecified chronic kidney disease; N18.9 Chronic kidney disease, unspecified; E66.9 Obesity, unspecified; Z79.899 Other long term (current) drug therapy; Z68.43 Body mass index [BMI] 50.0-59.9, adult; Z88.5 Allergy status to narcotic agent; Z88.8 Allergy status to other drugs, medicaments and biological substances; Z91.030 Bee allergy status; Z20.822 Contact with and (suspected) exposure to COVID-19
CPT/HCPCS: 36415; 71046; 80048; 84484; 85025; 87635; 96372; 99284; A9270; J2270; J3410; J7030; 99283; U0002